=== PATIENT | male | born 1940 | race Caucasian/White ===

== ENCOUNTER → 2018-02-07 | Outpatient (CLI) | payer MEDICARE, BC ==
--- NOTE | 2018-02-07 08:00 | US ---
EXAMINATION TYPE: US venous doppler duplex LE BI DATE OF EXAM: 02/07/2018 7:31 AM COMPARISON: NONE CLINICAL HISTORY: R60.9 bilateral Edema. Right foot and ankle swelling x 1 year; prior right leg frac ture SIDE PERFORMED: Bilateral TECHNIQUE: The lower extremity deep venous system is examined utilizing real time linear array sonog rach with graded compression, doppler sonography and color-flow sonography. VESSELS IMAGED: Common Femoral Vein Deep Femoral Vein Greater Saphenous Vein * Femoral Vein Popliteal Vein Small Saphenous Vein * Proximal Calf Veins (* superficial vessels) Right Leg: Negative for DVT Left Leg: Negative for DVT Grayscale, color doppler, spectral doppler imaging performed of the deep veins of the bilateral lowe r extremities. There is normal flow, compressibility, vascular waveforms. IMPRESSION: No ultrasound evidence for acute DVT in either lower extremity.
== END ==
LOC: RADUSWWP 07:00
PROVIDERS: ATTEND Podiatrist Foot & Ankle Surgery
DX: R60.9 Edema, unspecified (principal)
CPT/HCPCS: 93970

== ENCOUNTER 2018-06-16 06:57 | Day surgery (SDC) | payer MEDICARE, BC ==
[~2018-06-16 06:57] MED LIST: LACTATED RINGERS 1,000 ML IV SCH; LIDOCAINE 1% 20 ML VIAL (10MG/ML) FOR IV START INTRADERMA PRN
[2018-06-16] MEDS ORDERED: LACTATED RINGERS 1,000 ML IV ONE (07:04)
[2018-06-16 07:16] VITALS: RESP 16; TEMP 97.7
[2018-06-16] MEDS ORDERED: LIDOCAINE 1% INJ 10MG/ML (20 ML MDV) ONE (07:40)
[2018-06-16] MEDS ORDERED: PROPOFOL 10 MG/ML 20 ML VIAL IV ONE (07:40)
--- NOTE | 2018-06-16 07:54 | P.GSHP ---
History of Present Illness H&P Date: 06/16/18 Chief Complaint: Screening colonoscopy This a 77-year-old male who presents today for screening colonoscopy. Patient denies a significant GI complaints. Past Medical History Past Medical History: Atrial Fibrillation, Chest Pain / Angina, Hypertension, Osteoarthritis (OA), Prostate Disorder, Sleep Apnea/CPAP/BIPAP Additional Past Medical History / Comment(s): USES CPAP.Arthritis bilateral hands. Occasional RLS. BPH.. DIVERTICULI. History of Any Multi-Drug Resistant Organisms: None Reported Past Surgical History: Appendectomy, Heart Catheterization, Hernia Repair, Orthopedic Surgery Additional Past Surgical History / Comment(s): BILATERAL CATARACTS. Bilateral inguinal hernia repairs. Bilateral knee arthroscopies. EGD/colonoscopy/benign polypectomy. R eye tear duct. R shoulder arthroscopy. Vasectomy. Past Anesthesia/Blood Transfusion Reactions: No Reported Reaction Past Psychological History: No Psychological Hx Reported Additional Psychological History / Comment(s): Pt resides with his spouse. He is independent. 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 Smoking Status: Never smoker Past Alcohol Use History: Occasional Additional Past Alcohol Use History / Comment(s): pt drinks about 2 drinks daily in the evening. Past Drug Use History: None Reported - Past Family History Mother Family Medical History: Diabetes Mellitus Additional Family Medical History / Comment(s): Mother lived to be in her 80's. Father Brother(s) Family Medical History: Cancer Additional Family Medical History / Comment(s): Father had lung cancer. He was a smoker. Medications and Allergies Home Medications Medication Instructions Recorded Confirmed Type Apixaban [Eliquis] 5 mg PO BID #60 tab 04/24/17 06/16/18 Rx Metoprolol Tartrate [Lopressor] 50 mg PO BID #60 tab 04/24/17 06/16/18 Rx Allergies Allergy/AdvReac Type Severity Reaction Status Date / Time Penicillins Allergy Rash/Hives Verified 06/16/18 07:11 Surgical - Exam Vital Signs Temp Pulse Resp BP Pulse Ox 97.7 F 67 16 157/91 96 06/16/18 07:13 06/16/18 07:13 06/16/18 07:13 06/16/18 07:13 06/16/18 07:13 - General well developed, no distress - Eyes PERRL - ENT normal pinna - Neck no masses - Respiratory normal expansion - Cardiovascular Rhythm: regular - Abdomen Abdomen: soft, non tender Assessment and Plan Assessment: We will perform screening colonoscopy
--- NOTE | 2018-06-16 08:14 | P.OP ---
Date of Procedure: 06/16/18 Preoperative Diagnosis: Screening colonoscopy Postoperative Diagnosis: Diverticulosis Procedure(s) Performed: Colonoscopy Anesthesia: MAC Surgeon: Jesus Vital Pathology: none sent Condition: stable Disposition: PACU Description of Procedure: The patient's placed on the endoscopy table in the lateral position. He received IV sedation. Digital rectal exam was performed. The flexible colonoscope was then placed patient anus and passed throughout the entire colon. The ileocecal valve visualized. Cecum, ascending and transverse colon appeared normal. In the descending and sigmoid: there is moderate diverticular changes. The scope was then brought back the rectum and this appeared normal. Scope was withdrawn for patient.
[2018-06-16 08:30] VITALS: BP 140/75; PULSE 66
== END 2018-06-16 09:03 | disposition home or self-care (01) ==
LOC: ORWHC2ENDO 06:57
PROVIDERS: ATTEND Surgery
DX: Z12.11 Encounter for screening for malignant neoplasm of colon (principal); K57.30 Diverticulosis of large intestine without perforation or abscess without bleeding; G47.33 Obstructive sleep apnea (adult) (pediatric); I48.91 Unspecified atrial fibrillation; M19.90 Unspecified osteoarthritis, unspecified site; N40.0 Benign prostatic hyperplasia without lower urinary tract symptoms; I10 Essential (primary) hypertension; G25.81 Restless legs syndrome; Z79.01 Long term (current) use of anticoagulants; Z79.899 Other long term (current) drug therapy; Z88.0 Allergy status to penicillin; Z99.89 Dependence on other enabling machines and devices
CPT/HCPCS: J2001; J2704; G0121; 45378

== ENCOUNTER → 2018-07-18 | Outpatient (CLI) | payer MEDICARE, BC ==
--- NOTE | 2018-07-18 16:44 | US ---
EXAMINATION TYPE: US carotid duplex BILAT DATE OF EXAM: 07/18/2018 COMPARISON: NONE CLINICAL HISTORY: R42 Dizziness and giddiness. Pt states dizziness EXAM MEASUREMENTS: RIGHT: Peak Systolic Velocity (PSV) cm/sec ----- Right CCA: 105 ----- Right ICA: 93.0 ----- Right ECA: 87.0 ICA/CCA ratio: 0.9 RIGHT: End Diastole cm/sec ----- Right CCA: 17.0 ----- Right ICA: 25.8 ----- Right ECA: 5.4 LEFT: Peak Systolic Velocity (PSV) cm/sec ----- Left CCA: 81.7 ----- Left ICA: 85.5 ----- Left ECA: 85.2 ICA/CCA ratio: 1.04 LEFT: End Diastole cm/sec ----- Left CCA: 16.0 ----- Left ICA: 25.3 ----- Left ECA: 7.2 VERTEBRALS (direction of flow): Right Vertebral: Antegrade Left Vertebral: Antegrade Rhythm: Arrhythmia No significant stenosis seen, arrhythmia IMPRESSION: 1. No significant flow-limiting stenosis. Criteria for Assigning % of Stenosis / Diameter reduction (Estimation based on the indirect measurements of the internal carotid artery velocities (ICA PSV). 1. Normal (no stenosis)=ICA PSV < 125 cm/s: ratio < 2.0: ICA EDV<40 cm/s. 2. Less than 50% stenosis=ICA PSV < 125 cm/s: ratio < 2.0: ICA EDV<40 cm/s. 3. 50 to 69% stenosis=ICA PSV of 125 to 230 cm/s: ration 2.0 ? 4.0: ICA EDV 40-100 cm/s. 4. Greater than 70% stenosis to near occlusion= ICA PSV > 230 cm/s: ratio > 4.0: ICA EDV > 100 cm/s. 5. Near occlusion= ICA PSV velocities may be low or undetectable: variable ratio and ICA EDV. 6. Total occlusion=unable to detect flow.
== END ==
LOC: RADUSWWP 15:35
PROVIDERS: ATTEND Family Medicine
DX: R42 Dizziness and giddiness (principal)
CPT/HCPCS: 93880

== ENCOUNTER → 2020-03-21 | Outpatient (CLI) | payer MEDICARE, BC ==
--- NOTE | 2020-03-21 16:06 | CT ---
EXAMINATION TYPE: CT brain wo con DATE OF EXAM: 03/21/2020 HISTORY: PLASCENCIA CT DLP: 999.8 mGycm. Automated Exposure Control for Dose Reduction was Utilized. TECHNIQUE: CT scan of the head is performed without contrast. COMPARISON: None FINDINGS: There is no acute intracranial hemorrhage, midline shift, or mass effect identified. There is diffuse volume. Patchy periventricular white matter hypodensities likely sequela of chronic microvascular is chemic change. The ventricles, sulci, and cisterns are prominent concordant with volume loss. No extra-axial fluid collection. Bones and extracranial soft tissues are intact. The globes are gross ly symmetric with cataract postsurgical changes. Visualized sinuses and mastoid air cells are clear. IMPRESSION: No acute intracranial hemorrhage, midline shift, or mass effect.
== END | disposition home or self-care (01) ==
LOC: RADCTMAIN 13:43
PROVIDERS: ATTEND Family Medicine
DX: R51.9 Headache, unspecified (principal)
CPT/HCPCS: 70450

== ENCOUNTER 2020-09-15 18:25 | Emergency (ER) | payer MEDICARE, BC ==
[2020-09-15] MEDS ORDERED: ACETAMINOPHEN TAB 500 MG TAB PO STA (21:02)
[2020-09-15] MEDS ORDERED: SODIUM CHLORIDE 0.9% 500 ML 500 ML IV STA (21:03)
[2020-09-15] MEDS ORDERED: KETOROLAC 15 MG/ML 1 ML VIAL IVP STA (21:03)
--- NOTE | 2020-09-15 21:35 | XR ---
EXAMINATION: XR chest 1V portable DATE AND TIME: 09/15/2020 9:21 PM CLINICAL INDICATION: [facility]; Suspected COVID-19 pneumonia TECHNIQUE: Departmental protocol COMPARISON: 04/22/2017 chest radiograph FINDINGS: The lungs are clear. The pleural spaces are negative. The cardiac silhouette is moderately enlarged, perhaps more so than the prior study but there are dif ferences in the technique between the 2 studies. The remainder of the mediastinal silhouette is unremarkable. The skeletal structures and soft tissues are negative for acute findings. IMPRESSION: 1. No definite acute process. 2. Enlarged cardiac silhouette.
[2020-09-15 21:55] LABS: Basophils % (A) 1 %; Eosinophils % (A) 0 %; HCT 43.7 % (39.0-53.0); HGB 14.1 gm/dL (13.0-17.5); Lymphocytes # (A) 0.7 k/uL (1.0-4.8); Lymphocytes % (A) 14 %; MCH 33.2 pg (25.0-35.0); MCHC 32.4 g/dL (31.0-37.0); MCV 102.5 fL (80.0-100.0); Macrocytosis Slight; Mean Platelet Volume 7.4; Monocytes # (A) 0.3 k/uL (0-1.0); Monocytes % (A) 5 %; Neutrophils # (A) 4.1 k/uL (1.3-7.7); Neutrophils % (A) 79 %; Platelet Count 176 k/uL (150-450); RBC 4.26 m/uL (4.30-5.90); WBC 5.2 k/uL (3.8-10.6)
[2020-09-15 22:03] VITALS: TEMP 99
[2020-09-15 22:06] LABS: ALT 47 U/L (4-49); AST 57 U/L (17-59); African American GFR (CKD) >90 (>60 ml/min/1.73 sqM); Albumin 4.3 g/dL (3.5-5.0); Alkaline Phosphatase 183 U/L (38-126); Anion Gap 9 mmol/L; Blood Urea Nitrogen 16 mg/dL (9-20); C Reactive Protein 37.8 mg/L (<10.0); Calcium 9.1 mg/dL (8.4-10.2); Carbon Dioxide 26 mmol/L (22-30); Chloride 101 mmol/L (98-107); Glucose 109 mg/dL (74-99); Magnesium 1.9 mg/dL (1.6-2.3); Non-African American GFR(CKD) 85 (>60 ml/min/1.73 sqM); Potassium 4.5 mmol/L (3.5-5.1); Sodium 136 mmol/L (137-145); Total Bilirubin 0.8 mg/dL (0.2-1.3); Total Protein 7.5 g/dL (6.3-8.2)
[2020-09-15 22:11] LABS: Partial Thromboplastin Time 26.1 sec (22.0-30.0); Prothrombin Time 10.5 sec (9.0-12.0)
[2020-09-15] MEDS ORDERED: BAMLANIVIMAB (EUA) 700 MG, ETESEVIMAB (EUA) 1,400 MG in SODIUM CHLORIDE 0.9% 50 ML IVPB ONE (23:00)
--- NOTE | 2020-09-15 23:36 | ED ---
General Adult HPI - General Chief complaint: Upper Respiratory Infection Stated complaint: Covid+, RONNIE Time Seen by Provider: 09/15/20 20:36 Source: patient Mode of arrival: ambulatory Limitations: no limitations - History of Present Illness Initial comments: 79 year old male with a past medical history atrial fibrillation, hypertension presents to the emergency room for a chief complaint of not feeling well. Patient reports that he tested positive for coronavirus last Saturday. Than having symptoms for 8 days now. States he has had a slight cough, body aches, and a headache. Patient states he is here today for his headache. Patient has not taken anything for pain. Patient denies shortness of breath. Patient denies this being the worst headache of his life.Patient has no other complaints at this time including shortness of breath, chest pain, abdominal pain, nausea or vomiting, headache, or visual changes. - Related Data Previous Rx's Medication Instructions Recorded Apixaban [Eliquis] 5 mg PO BID #60 tab 04/24/17 Metoprolol Tartrate [Lopressor] 50 mg PO BID #60 tab 04/24/17 Allergies Allergy/AdvReac Type Severity Reaction Status Date / Time Penicillins Allergy Rash/Hives Verified 09/15/20 18:37 Review of Systems ROS Statement: Those systems with pertinent positive or pertinent negative responses have been documented in the HPI. ROS Other: All systems not noted in ROS Statement are negative. Past Medical History Past Medical History: Atrial Fibrillation, Chest Pain / Angina, Hypertension, Osteoarthritis (OA), Prostate Disorder, Sleep Apnea/CPAP/BIPAP Additional Past Medical History / Comment(s): USES CPAP.Arthritis bilateral hands. Occasional RLS. BPH.. DIVERTICULI. History of Any Multi-Drug Resistant Organisms: None Reported Past Surgical History: Appendectomy, Heart Catheterization, Hernia Repair, Orthopedic Surgery Additional Past Surgical History / Comment(s): BILATERAL CATARACTS. Bilateral inguinal hernia repairs. Bilateral knee arthroscopies. EGD/colonoscopy/benign polypectomy. R eye tear duct. R shoulder arthroscopy. Vasectomy. Past Anesthesia/Blood Transfusion Reactions: No Reported Reaction Past Psychological History: No Psychological Hx Reported Smoking Status: Former smoker Past Alcohol Use History: Occasional Past Drug Use History: None Reported - Past Family History Mother Family Medical History: Diabetes Mellitus Additional Family Medical History / Comment(s): Mother lived to be in her 80's. Father Brother(s) Family Medical History: Cancer Additional Family Medical History / Comment(s): Father had lung cancer. He was a smoker. General Exam Limitations: no limitations General appearance: alert, in no apparent distress Head exam: Present: atraumatic, normocephalic, normal inspection Eye exam: Present: normal appearance, PERRL, EOMI. Absent: scleral icterus, conjunctival injection, periorbital swelling ENT exam: Present: normal exam, mucous membranes moist Neck exam: Present: normal inspection, full ROM. Absent: tenderness, meningismus, lymphadenopathy Respiratory exam: Present: normal lung sounds bilaterally. Absent: respiratory distress, wheezes, rales, rhonchi, stridor Cardiovascular Exam: Present: regular rate, normal rhythm, normal heart sounds. Absent: systolic murmur, diastolic murmur, rubs, gallop, clicks GI/Abdominal exam: Present: soft, normal bowel sounds. Absent: distended, tenderness, guarding, rebound, rigid Neurological exam: Present: alert, oriented X3, normal gait, other (GCS 15) Course Vital Signs 09/15/20 09/15/20 18:34 22:02 Temperature 98.5 F 99 F Pulse Rate 75 89 Respiratory 18 Rate Blood Pressure 139/81 O2 Sat by Pulse 98 98 Oximetry Medical Decision Making - Medical Decision Making Vitals are stable. Patient is well-appearing. CBC and CMP unremarkable. CRP elevated likely secondary to Cee virus. Chest x-ray shows no definite acute process. Enlarged cardiac silhouette is noted. Patient denying any chest pain. Patient was given fluids and pain medication and did have significant improvement in symptoms. He states his headache is gone. She does qualify for antibody infusion. I did discuss the risks of this including that it is not fully studied and there is risk of ALLERGIC reaction. Patient is agreeable to this. Patient will be discharged home after antibodies. - Lab Data Result diagrams: 09/15/20 21:36 09/15/20 21:36 Lab Results 09/15/20 09/15/20 09/15/20 Range/Units 21:36 21:36 21:36 WBC 5.2 (3.8-10.6) k/uL RBC 4.26 L (4.30-5.90) m/uL Hgb 14.1 (13.0-17.5) gm/dL Hct 43.7 (39.0-53.0) % MCV 102.5 H (80.0-100.0) fL MCH 33.2 (25.0-35.0) pg MCHC 32.4 (31.0-37.0) g/dL RDW 14.0 (11.5-15.5) % Plt Count 176 (150-450) k/uL MPV 7.4 Neutrophils % 79 % Lymphocytes % 14 % Monocytes % 5 % Eosinophils % 0 % Basophils % 1 % Neutrophils # 4.1 (1.3-7.7) k/uL Lymphocytes # 0.7 L (1.0-4.8) k/uL Monocytes # 0.3 (0-1.0) k/uL Eosinophils # 0.0 (0-0.7) k/uL Basophils # 0.0 (0-0.2) k/uL Macrocytosis Slight PT 10.5 (9.0-12.0) sec INR 1.0 (<1.2) APTT 26.1 (22.0-30.0) sec Sodium 136 L (137-145) mmol/L Potassium 4.5 (3.5-5.1) mmol/L Chloride 101 (98-107) mmol/L Carbon Dioxide 26 (22-30) mmol/L Anion Gap 9 mmol/L BUN 16 (9-20) mg/dL Creatinine 0.79 (0.66-1.25) mg/dL Est GFR (CKD-EPI)AfAm >90 (>60 ml/min/1.73 sqM) Est GFR (CKD-EPI)NonAf 85 (>60 ml/min/1.73 sqM) Glucose 109 H (74-99) mg/dL Calcium 9.1 (8.4-10.2) mg/dL Magnesium 1.9 (1.6-2.3) mg/dL Total Bilirubin 0.8 (0.2-1.3) mg/dL AST 57 (17-59) U/L ALT 47 (4-49) U/L Alkaline Phosphatase 183 H (38-126) U/L C-Reactive Protein 37.8 H (<10.0) mg/L Total Protein 7.5 (6.3-8.2) g/dL Albumin 4.3 (3.5-5.0) g/dL Coronavirus (PCR) (Not Detectd) 09/15/20 Range/Units 21:36 WBC (3.8-10.6) k/uL RBC (4.30-5.90) m/uL Hgb (13.0-17.5) gm/dL Hct (39.0-53.0) % MCV (80.0-100.0) fL MCH (25.0-35.0) pg MCHC (31.0-37.0) g/dL RDW (11.5-15.5) % Plt Count (150-450) k/uL MPV Neutrophils % % Lymphocytes % % Monocytes % % Eosinophils % % Basophils % % Neutrophils # (1.3-7.7) k/uL Lymphocytes # (1.0-4.8) k/uL Monocytes # (0-1.0) k/uL Eosinophils # (0-0.7) k/uL Basophils # (0-0.2) k/uL Macrocytosis PT (9.0-12.0) sec INR (<1.2) APTT (22.0-30.0) sec Sodium (137-145) mmol/L Potassium (3.5-5.1) mmol/L Chloride (98-107) mmol/L Carbon Dioxide (22-30) mmol/L Anion Gap mmol/L BUN (9-20) mg/dL Creatinine (0.66-1.25) mg/dL Est GFR (CKD-EPI)AfAm (>60 ml/min/1.73 sqM) Est GFR (CKD-EPI)NonAf (>60 ml/min/1.73 sqM) Glucose (74-99) mg/dL Calcium (8.4-10.2) mg/dL Magnesium (1.6-2.3) mg/dL Total Bilirubin (0.2-1.3) mg/dL AST (17-59) U/L ALT (4-49) U/L Alkaline Phosphatase (38-126) U/L C-Reactive Protein (<10.0) mg/L Total Protein (6.3-8.2) g/dL Albumin (3.5-5.0) g/dL Coronavirus (PCR) Detected A (Not Detectd) Disposition Clinical Impression: COVID-19 Disposition: HOME SELF-CARE Condition: Good Instructions (If sedation given, give patient instructions): Coronavirus Disease 2019 (COVID-19) Additional Instructions: Please continue to quarantine for at least 10-14 days and until symptoms improve. Please follow up with primary care and return here for any worsening symptoms. Is patient prescribed a controlled substance at d/c from ED?: No Referrals: Arsenio Nunes MD [Primary Care Provider] - 1-2 days Time of Disposition: 23:35
[2020-09-16 00:43] VITALS: BP 123/89; PULSE 80; RESP 16
== END 2020-09-16 00:42 | disposition home or self-care (01) ==
LOC: EC 18:25
DX: U07.1 COVID-19 (principal); I48.91 Unspecified atrial fibrillation; I10 Essential (primary) hypertension; G47.30 Sleep apnea, unspecified; Z88.0 Allergy status to penicillin; Z87.891 Personal history of nicotine dependence; Z99.89 Dependence on other enabling machines and devices
CPT/HCPCS: 36415; 80053; 83735; 85025; 85610; 85730; 86140; 84145; 87635; 71045; 99283; 96365; 96375; 96361 ×2; J1885; Q0245

== ENCOUNTER 2021-01-04 12:32 | Observation (INO) | payer MEDICARE, BC ==
[2021-01-04] MEDS ORDERED: NITROGLYCERIN OINT 1 INCH/GM PACKET TOPICAL STA (14:31)
[2021-01-04] MEDS ORDERED: ASPIRIN 81 MG PO STA (14:31)
--- NOTE | 2021-01-04 14:37 | ED ---
General Adult HPI - General Chief complaint: Chest Pain Stated complaint: Chest Time Seen by Provider: 01/04/21 13:45 Source: patient, RN notes reviewed Mode of arrival: wheelchair Limitations: no limitations - History of Present Illness Initial comments: Patient is a pleasant 80-year-old male presenting to the emergency department chest discomfort. Onset of symptoms was yesterday morning. Patient did receive vaccination for Covid the day before. Patient states discomfort is improved at this time. Discomfort was difficult to describe. There may been some mild associated dyspnea. Patient believes symptoms improved with his anti-inflammatories. No leg pain or leg swelling. No history of similar symptoms previously. - Related Data Previous Rx's Medication Instructions Recorded Apixaban [Eliquis] 5 mg PO BID #60 tab 04/24/17 Metoprolol Tartrate [Lopressor] 50 mg PO BID #60 tab 04/24/17 Allergies Allergy/AdvReac Type Severity Reaction Status Date / Time Penicillins Allergy Rash/Hives Verified 01/04/21 12:42 Review of Systems ROS Statement: Those systems with pertinent positive or pertinent negative responses have been documented in the HPI. ROS Other: All systems not noted in ROS Statement are negative. Constitutional: Denies: fever Eyes: Denies: eye pain ENT: Denies: ear pain Respiratory: Denies: cough Cardiovascular: Reports: chest pain Endocrine: Denies: fatigue Gastrointestinal: Denies: abdominal pain, vomiting Genitourinary: Denies: dysuria Musculoskeletal: Denies: back pain Skin: Denies: rash Neurological: Denies: weakness Past Medical History Past Medical History: Atrial Fibrillation, Chest Pain / Angina, Hypertension, Osteoarthritis (OA), Prostate Disorder, Sleep Apnea/CPAP/BIPAP Additional Past Medical History / Comment(s): USES CPAP.Arthritis bilateral hands. Occasional RLS. BPH.. DIVERTICULI. History of Any Multi-Drug Resistant Organisms: None Reported Past Surgical History: Appendectomy, Heart Catheterization, Hernia Repair, Orthopedic Surgery Additional Past Surgical History / Comment(s): BILATERAL CATARACTS. Bilateral inguinal hernia repairs. Bilateral knee arthroscopies. EGD/colonoscopy/benign polypectomy. R eye tear duct. R shoulder arthroscopy. Vasectomy. Past Anesthesia/Blood Transfusion Reactions: No Reported Reaction Past Psychological History: No Psychological Hx Reported Smoking Status: Former smoker Past Alcohol Use History: Occasional Past Drug Use History: None Reported - Past Family History Mother Family Medical History: Diabetes Mellitus Additional Family Medical History / Comment(s): Mother lived to be in her 80's. Father Brother(s) Family Medical History: Cancer Additional Family Medical History / Comment(s): Father had lung cancer. He was a smoker. General Exam Limitations: no limitations General appearance: alert, in no apparent distress Head exam: Present: normocephalic Eye exam: Present: normal appearance ENT exam: Present: normal oropharynx Neck exam: Present: normal inspection Respiratory exam: Present: normal lung sounds bilaterally. Absent: chest wall tenderness Cardiovascular Exam: Present: regular rate, normal rhythm Expanded Peripheral pulses: 2+: Radial (R), Radial (L), Posterior Tibialis (R), Posterior Tibialis (L), Dorsalis Pedis (R), Dorsalis Pedis (L) GI/Abdominal exam: Present: soft. Absent: tenderness Extremities exam: Present: normal inspection. 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 fib with rate of 80.. S1 06. QT 378. QTC 435. Normal axis. Incomplete right bundle-branch block. No acute ST change. Septal Q waves. Medical Decision Making - Medical Decision Making Patient reevaluated and resting comfortably in bed. Dr. Nunes has been paged for admission of this patient. Patient will be covered with antibiotics for qu estionable early pneumonia. - Lab Data Result diagrams: 01/04/21 14:31 01/04/21 14:31 Lab Results 01/04/21 01/04/21 01/04/21 Range/Units 14:31 14:31 14:31 WBC 3.8 (3.8-10.6) k/uL RBC 3.42 L (4.30-5.90) m/uL Hgb 12.1 L (13.0-17.5) gm/dL Hct 36.0 L (39.0-53.0) % MCV 105.4 H (80.0-100.0) fL MCH 35.3 H (25.0-35.0) pg MCHC 33.5 (31.0-37.0) g/dL RDW 14.9 (11.5-15.5) % Plt Count 166 (150-450) k/uL MPV 7.5 Neutrophils % 82 % Lymphocytes % 8 % Monocytes % 6 % Eosinophils % 2 % Basophils % 0 % Neutrophils # 3.1 (1.3-7.7) k/uL Lymphocytes # 0.3 L (1.0-4.8) k/uL Monocytes # 0.2 (0-1.0) k/uL Eosinophils # 0.1 (0-0.7) k/uL Basophils # 0.0 (0-0.2) k/uL Macrocytosis Moderate PT 11.2 (9.0-12.0) sec INR 1.1 (<1.2) APTT 26.8 (22.0-30.0) sec D-Dimer 0.42 (<0.60) mg/L FEU Sodium 134 L (137-145) mmol/L Potassium 4.5 (3.5-5.1) mmol/L Chloride 102 (98-107) mmol/L Carbon Dioxide 27 (22-30) mmol/L Anion Gap 5 mmol/L BUN 14 (9-20) mg/dL Creatinine 0.87 (0.66-1.25) mg/dL Est GFR (CKD-EPI)AfAm >90 (>60 ml/min/1.73 sqM) Est GFR (CKD-EPI)NonAf 81 (>60 ml/min/1.73 sqM) Glucose 104 H (74-99) mg/dL Calcium 9.2 (8.4-10.2) mg/dL Magnesium 2.1 (1.6-2.3) mg/dL Total Bilirubin 0.7 (0.2-1.3) mg/dL AST 79 H (17-59) U/L ALT 74 H (4-49) U/L Alkaline Phosphatase 165 H (38-126) U/L Troponin I (0.000-0.034) ng/mL Total Protein 6.6 (6.3-8.2) g/dL Albumin 3.9 (3.5-5.0) g/dL Amylase 44 (30-110) U/L Lipase 46 (23-300) U/L 01/04/21 Range/Units 14:31 WBC (3.8-10.6) k/uL RBC (4.30-5.90) m/uL Hgb (13.0-17.5) gm/dL Hct (39.0-53.0) % MCV (80.0-100.0) fL MCH (25.0-35.0) pg MCHC (31.0-37.0) g/dL RDW (11.5-15.5) % Plt Count (150-450) k/uL MPV Neutrophils % % Lymphocytes % % Monocytes % % Eosinophils % % Basophils % % Neutrophils # (1.3-7.7) k/uL Lymphocytes # (1.0-4.8) k/uL Monocytes # (0-1.0) k/uL Eosinophils # (0-0.7) k/uL Basophils # (0-0.2) k/uL Macrocytosis PT (9.0-12.0) sec INR (<1.2) APTT (22.0-30.0) sec D-Dimer (<0.60) mg/L FEU Sodium (137-145) mmol/L Potassium (3.5-5.1) mmol/L Chloride (98-107) mmol/L Carbon Dioxide (22-30) mmol/L Anion Gap mmol/L BUN (9-20) mg/dL Creatinine (0.66-1.25) mg/dL Est GFR (CKD-EPI)AfAm (>60 ml/min/1.73 sqM) Est GFR (CKD-EPI)NonAf (>60 ml/min/1.73 sqM) Glucose (74-99) mg/dL Calcium (8.4-10.2) mg/dL Magnesium (1.6-2.3) mg/dL Total Bilirubin (0.2-1.3) mg/dL AST (17-59) U/L ALT (4-49) U/L Alkaline Phosphatase (38-126) U/L Troponin I <0.012 (0.000-0.034) ng/mL Total Protein (6.3-8.2) g/dL Albumin (3.5-5.0) g/dL Amylase (30-110) U/L Lipase (23-300) U/L - Radiology Data Radiology results: image reviewed (Chest x-ray shows cardiomegaly and COPD. Lateral density right lower lobe, possibly developing infiltrate.) Disposition Clinical Impression: Chest pain Disposition: ADMITTED IP TO THIS HOSP Is patient prescribed a controlled substance at d/c from ED?: No Referrals: Arsenio Nunes MD [Primary Care Provider] - 1-2 days Decision Time: 15:16
[2021-01-04 14:42] LABS: Basophils % (A) 0 %; Eosinophils # (A) 0.1 k/uL (0-0.7); Eosinophils % (A) 2 %; HGB 12.1 gm/dL (13.0-17.5); Lymphocytes # (A) 0.3 k/uL (1.0-4.8); Lymphocytes % (A) 8 %; MCH 35.3 pg (25.0-35.0); MCHC 33.5 g/dL (31.0-37.0); MCV 105.4 fL (80.0-100.0); Macrocytosis Moderate; Mean Platelet Volume 7.5; Monocytes # (A) 0.2 k/uL (0-1.0); Monocytes % (A) 6 %; Neutrophils # (A) 3.1 k/uL (1.3-7.7); Neutrophils % (A) 82 %; Platelet Count 166 k/uL (150-450); RBC 3.42 m/uL (4.30-5.90); RDW 14.9 % (11.5-15.5); WBC 3.8 k/uL (3.8-10.6)
--- NOTE | 2021-01-04 14:49 | XR ---
EXAMINATION TYPE: XR chest 2V DATE OF EXAM: 01/04/2021 COMPARISON: 09/15/2020 TECHNIQUE: PA and lateral views submitted. HISTORY: Redness of breath FINDINGS: The lungs are clear and there is no pneumothorax, pleural effusion, or focal pneumonia pleural-based thickening is increased along the right lateral chest wall. Heart is enlarged and underlying COPD. P rominence of the right paratracheal stripe noted there is apical pleural thickening. Arthropathy of t he shoulders with no overt failure or focal pneumonia hypertrophic and degenerative change of the spi ne. IMPRESSION: 1. Cardiomegaly and COPD. Is increasing density along the lateral margin of the right lower lobe coul d represent developing infiltrate follow up CT of the chest recommended.
[2021-01-04 14:53] LABS: ALT 74 U/L (4-49); AST 79 U/L (17-59); African American GFR (CKD) >90 (>60 ml/min/1.73 sqM); Albumin 3.9 g/dL (3.5-5.0); Alkaline Phosphatase 165 U/L (38-126); Amylase 44 U/L (30-110); Anion Gap 5 mmol/L; Blood Urea Nitrogen 14 mg/dL (9-20); Calcium 9.2 mg/dL (8.4-10.2); Carbon Dioxide 27 mmol/L (22-30); Chloride 102 mmol/L (98-107); Glucose 104 mg/dL (74-99); Lipase 46 U/L (23-300); Magnesium 2.1 mg/dL (1.6-2.3); Non-African American GFR(CKD) 81 (>60 ml/min/1.73 sqM); Potassium 4.5 mmol/L (3.5-5.1); Sodium 134 mmol/L (137-145); Total Bilirubin 0.7 mg/dL (0.2-1.3); Total Protein 6.6 g/dL (6.3-8.2)
[2021-01-04 14:56] LABS: INR 1.1 (<1.2); Partial Thromboplastin Time 26.8 sec (22.0-30.0); Prothrombin Time 11.2 sec (9.0-12.0)
[2021-01-04] MEDS ORDERED: PNEUMONIA PROTOCOL UTILIZED 1 EACH MISC PO PRN (15:16)
[2021-01-04] MEDS ORDERED: NITROGLYCERIN SL TABS 0.4 MG TAB SUBLINGUAL PRN (15:16)
[2021-01-04] MEDS ORDERED: AZITHROMYCIN 500 MG in SODIUM CHLORIDE 0.9% 250 ML IVPB STA (15:16)
[2021-01-04] MEDS: SODIUM CHLORIDE 0.9% 1,000 ML IV SCH (16:02)
[2021-01-04] MEDS: APIXABAN 5 MG TAB PO SCH (21:24)
[2021-01-05] MEDS: METOPROLOL TARTRATE 25 MG TAB PO SCH ×2 (01:29→22:20)
[2021-01-05] MEDS: SODIUM CHLORIDE 0.9% 1,000 ML IV SCH (02:03)
--- NOTE | 2021-01-05 08:18 | P.HPIM ---
History of Present Illness H&P Date: 01/05/21 Chief Complaint: Shortness of breath or chest pain. This is a history and physical on an 80-year-old white male who recently received his second code vaccination and about 3-4 days after the second dose, had significant substernal chest pressure and shortness of breath. Evaluation in the emergency room showed significant infiltrate and with his symptomatology he was admitted for observation to rule out myocardial infarction. He has had history of chronic virus infection in the past. He feels much better this morning. 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 Review of Systems Constitutional: Denies chills, Denies fever Eyes: denies blurred vision, denies pain Ears, nose, mouth and throat: Denies headache, Denies sore throat Cardiovascular: Reports chest pain, Reports shortness of breath, Denies edema Respiratory: Denies cough Gastrointestinal: Denies abdominal pain, Denies diarrhea, Denies nausea, Denies vomiting Musculoskeletal: Denies myalgias Integumentary: Denies pruritus, Denies rash Neurological: Denies numbness, Denies weakness Endocrine: Denies fatigue, Denies weight change Past Medical History Past Medical History: Atrial Fibrillation, Chest Pain / Angina, Hypertension, Osteoarthritis (OA), Prostate Disorder, Sleep Apnea/CPAP/BIPAP Additional Past Medical History / Comment(s): Pt states he is not using a CPAP at home at this time.Arthritis bilateral hands. Occasional RLS. BPH.. DIVERTICULI. History of Any Multi-Drug Resistant Organisms: None Reported Past Surgical History: Appendectomy, Cardiac Ablation, Heart Catheterization, Hernia Repair, Orthopedic Surgery Additional Past Surgical History / Comment(s): BILATERAL CATARACTS. Bilateral inguinal hernia repairs. Bilateral knee arthroscopies. EGD/colonoscopy/benign polypectomy. R eye tear duct. R shoulder arthroscopy. Vasectomy. Pt also had [address] Haynes where he states he stopped his heart to get rid of the afib but they were both unsuccessful. Past Anesthesia/Blood Transfusion Reactions: No Reported Reaction Past Psychological History: No Psychological Hx Reported Additional Psychological History / Comment(s): Pt resides with his spouse. He is independent. 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 Smoking Status: Never smoker Past Alcohol Use History: Occasional Additional Past Alcohol Use History / Comment(s): pt states he drinks about 1-2 beers every other day. Past Drug Use History: None Reported - Past Family History Mother Family Medical History: Diabetes Mellitus Additional Family Medical History / Comment(s): Mother lived to be in her 80's. Father Brother(s) Family Medical History: Cancer Additional Family Medical History / Comment(s): Father had lung cancer. He was a smoker. Medications and Allergies Home Medications Medication Instructions Recorded Confirmed Type Apixaban [Eliquis] 5 mg PO BID #60 tab 04/24/17 01/04/21 Rx Metoprolol Tartrate [Lopressor] 25 mg PO HS 01/04/21 01/04/21 History Metoprolol Tartrate [Lopressor] 50 mg PO DAILY 01/04/21 01/04/21 History Allergies Allergy/AdvReac Type Severity Reaction Status Date / Time Penicillins Allergy Rash/Hives Verified 01/04/21 15:36 Physical Exam Vitals: Vital Signs Temp Pulse Pulse Pulse Resp BP BP 01/05/21 07:00 98.0 F 58 L 18 129/78 01/05/21 02:00 95 16 01/05/21 01:27 98.3 F 95 16 136/77 01/04/21 19:42 98.1 F 72 20 115/72 01/04/21 18:24 98.7 F 81 18 124/76 01/04/21 15:05 98.4 F 73 16 132/70 01/04/21 14:30 78 01/04/21 12:42 100.0 F H 76 20 134/72 Pulse Ox 01/05/21 07:00 94 L 01/05/21 02:00 01/05/21 01:27 95 01/04/21 19:42 96 01/04/21 18:24 97 01/04/21 15:05 97 01/04/21 14:30 01/04/21 12:42 96 Intake and Output 01/04/21 01/05/21 01/05/21 22:59 06:59 14:59 Intake Total 300 0 Balance 300 0 Intake: Oral 300 0 Other: Voiding Method Toilet # Voids 1 2 Weight 90.265 kg - Constitutional General appearance: no acute distress - EENT Eyes: EOMI - Neck Neck: no lymphadenopathy - Respiratory Respiratory: bilateral: diminished - Cardiovascular Heart sounds: normal: S1, S2 Abnormal Heart Sounds: no S3 Gallop - Gastrointestinal General gastrointestinal: soft, no tenderness Results CBC & Chem 7: 01/04/21 14:31 01/04/21 14:31 Labs: Abnormal Lab Results - Last 24 Hours (Table) 01/04/21 01/04/21 Range/Units 14:31 14:31 RBC 3.42 L (4.30-5.90) m/uL Hgb 12.1 L (13.0-17.5) gm/dL Hct 36.0 L (39.0-53.0) % MCV 105.4 H (80.0-100.0) fL MCH 35.3 H (25.0-35.0) pg Lymphocytes # 0.3 L (1.0-4.8) k/uL Sodium 134 L (137-145) mmol/L Glucose 104 H (74-99) mg/dL AST 79 H (17-59) U/L ALT 74 H (4-49) U/L Alkaline Phosphatase 165 H (38-126) U/L Thrombosis Risk Factor Assmnt - Choose All That Apply Each Risk Factor Represents 3 Points: Age 75 years or older Thrombosis Risk Factor Assessment Total Risk Factor Score: 3 Thrombosis Risk Factor Assessment Level: Moderate Risk Assessment and Plan (1) Chest pain Current Visit: Yes Status: Acute Code(s): R07.9 - CHEST PAIN, UNSPECIFIED SNOMED Code(s): 56955629 Plan: Rule out myocardial infarction. Empiric treatment for pneumonia. Element of COPD also on x-ray. Cardiology is consulted. We will go ahead and continue appropriate antibiotic treatment. Anticipate discharge in next 24 hours if stabilizing. Significant improvement clinically since admission.
[2021-01-05] MEDS ORDERED: CAFFEINE CITRATE 60 MG/3 ML VIAL IV PRN (08:52)
[2021-01-05] MEDS ORDERED: AMINOPHYLLINE 500 MG/20 ML VIAL IV PRN (08:52)
[2021-01-05] MEDS ORDERED: REGADENOSON 0.4 MG/5 ML SYRINGE IV PRN (08:52)
[2021-01-05] MEDS ORDERED: ASPIRIN 325 MG TAB PO SCH (09:00)
--- NOTE | 2021-01-05 09:38 | CONS ---
CONSULTATION ATTENDING DOCTOR: Dr. Nunes. HISTORY OF PRESENT ILLNESS: Mr. Loo is an 80-year-old male followed by Dr. Haynes on a regular basis with a history of hypertension, history of chronic persistent atrial fibrillation who presented with symptoms of chest discomfort. He received his Covid 19 seconds injection early this week, then started to complain of a headache a day after. The headache persisted and yesterday complained of chest heaviness as well. He came into the emergency room to be further evaluated. He is usually active physically, has no exertional chest discomfort or dyspnea on exertion. He denies any dizziness or palpitation. No syncope. No PND, orthopnea, or peripheral edema. He has underwent a myocardial perfusion imaging in 2018 that revealed no evidence of inducible ischemia. His left ventricular systolic function by echocardiography was normal. The patient denies any history of PND, orthopnea, or peripheral edema. He has no history of congestive heart failure or documented obstructive coronary artery disease. His coronary risk factors are remarkable for hypertension, he is nondiabetic, nonsmoker. MEDICATIONS: Include Lopressor 50 in the morning, 25 in the afternoon, Eliquis 5 mg twice a day. REVIEW OF SYSTEMS: RESPIRATORY system: He has no documented history of asthma, emphysema or bronchitis. GI system: No recent GI bleeding. No peptic ulcer disease. system: No dysuria or hematuria. NERVOUS SYSTEM: No stroke or seizure. The patient had Covid 19 infection a few months ago and received monoclonal antibodies treatment. PHYSICAL EXAMINATION: He is an 80-year-old male, alert, oriented, in no apparent distress. Blood pressure 129/70 with a heart rate in the 70s. HEAD: Normocephalic. Eyes: Sclerae anicteric. NECK: Good carotid upstroke. No bruit. No jugular venous distention. LUNGS: Clear to auscultation. HEART: Irregularly irregular S1, S2. No S3 with systolic murmur. No diastolic murmur. No rub. ABDOMEN: Soft, nontender. Positive bowel sounds. No megaly. EXTREMITIES: No edema. Intact distal pulses. LAB DATA: Hemoglobin 12.1. Troponin less than 0.012 for 3 samples. AST of 79, ALT of 74, potassium 4.5. EKG revealed atrial fibrillation, rate of 80, poor R progression, nonspecific ST-T wave changes. Chest x-ray revealed increased density on the lateral margin of the right lower lobe. IMPRESSION: 1. Headache, probably side effects from his Covid 19 vaccination. 2. Episode of chest discomfort, has some atypical features for ischemic disease. No evidence for acute coronary syndrome. 3. History of chronic persistent atrial fibrillation, anticoagulated. 4. History of hypertension. RECOMMENDATIONS: I will continue his present medical regimen. I will proceed with obtaining myocardial perfusion imaging to assess his status and guide his treatment. We will also obtain an echocardiogram with Doppler. Patient was scheduled to undergo an outpatient stress test next month. We will proceed with that today and depending on the results of testing, further recommendations will be made. Thank you for this consult. We will follow with you. MMODL / IJN: [id number] /
[2021-01-05 09:56] LABS: Chol/HDL Ratio 2.02; Cholesterol 119 mg/dL (0-200); Triglycerides <50.0 mg/dL (0.0-149.0)
--- NOTE | 2021-01-05 10:07 | XR ---
EXAMINATION TYPE: XR chest 2V DATE OF EXAM: 01/05/2021 COMPARISON: 01/04/2021 TECHNIQUE: PA and lateral views submitted. HISTORY: Cough possible pneumonia FINDINGS: Heart is enlarged and there is a diffuse interstitial pattern with tiny bilateral effusions. Biapical pleural thickening. Underlying COPD suspected. Arthropathy of the shoulders with hypertrophic and de generative change of the spine. IMPRESSION: 1. Interstitial pattern with cardiomegaly and tiny bilateral effusion correlate for CHF versus inters titial pneumonia.
[2021-01-05] MEDS: APIXABAN 5 MG TAB PO SCH ×2 (11:59→22:21)
[2021-01-05] MEDS: METOPROLOL TARTRATE 50 MG TAB PO SCH (11:59)
[2021-01-05] MEDS: AZITHROMYCIN 500 MG TAB PO SCH (11:59)
--- NOTE | 2021-01-05 14:08 | NM ---
EXAMINATION TYPE: NM stress lexiscan cardiolite DATE OF EXAM: 01/05/2021 COMPARISON: NONE HISTORY: Yes pain TECHNIQUE: After the intravenous administration of 9.5 mCi Tc 99m Sestamibi - Cardiolite resting SPE CT images acquired 55 minutes post injection. The patient received 0.4mg Lexiscan, 24.1 mCi Tc 99m Sestamibi - Stress images obtained [address] injection FINDINGS: Review of stress and rest SPECT images demonstrates no distinct perfusion abnormality. Gated analysi s shows normal wall motion with an estimated left ventricular ejection fraction of 59 %. IMPRESSION: No scintigraphic evidence for reversible ischemia.
--- NOTE | 2021-01-05 15:41 | EST ---
EXERCISE STRESS DATE OF SERVICE: AGE: 80 SEX: M HT: 5'11" WT: 198 lbs PROTOCOL: Lexiscan STAGE: NA DURATION OF EXERCISE: NA HEART RATE REST: 84 BLOOD PRESSURE REST: 139/85 MAXIMUM HEART RATE ACHIEVED: 104 MAXIMUM BLOOD PRESSURE: 140/71 85% MPHR: NA 100% MPHR: NA METS: NA INDICATIONS: Chest pain RESULTS: Baseline rhythm is atrial fibrillation, rate of 84, borderline right axis deviation, nonspecific ST-T wave changes. Baseline blood pressure 139/85 mmHg. Patient received injection of Lexiscan. Electrocardiograph monitoring revealed rare PVCs. There was no evidence of diagnostic ischemic ST deviation. Cardiolite was injected per protocol. CONCLUSION: 1. Nondiagnostic electrocardiograph stress testing. 2. Nuclear images will be reported separately. MMODL / IJN: [id number] /
--- NOTE | 2021-01-05 19:00 | ECHOF ---
Referral Reason: MEASUREMENTS -------- HEIGHT: 180.3 cm WEIGHT: 90.3 kg BP: 129/78 RVIDd: 3.8 cm (< 3.3) IVSd: 1.5 cm (0.6 - 1.1) LVIDd: 4.5 cm (3.9 - 5.3) LVPWd: 1.6 cm (0.6 - 1.1) IVSs: 1.8 cm LVIDs: 2.7 cm LVPWs: 1.6 cm LAESV Index (A-L): 40.88 ml/m Ao Diam: 2.7 cm (2.0 - 3.7) AV Cusp: 1.9 cm (1.5 - 2.6) LA Diam: 4.4 cm (2.7 - 3.8) MV EXCURSION: 22.486 mm (> 18.000) MV EF SLOPE: 105 mm/s (70 - 150) EPSS: 0.4 cm AR PHT: 596 ms RAP: 20.00 mmHg RVSP: 62.61 mmHg FINDINGS -------- Atrial fibrillation. This was a technically adequate study. The left ventricular size is normal. There is moderate concentric left ventricular hypertrophy. O verall left ventricular systolic function is low-normal with, an EF between 50 - 55 %. Left ventric ular fillimg pressure cannot be estimated due to Atrial fibrillation. The right ventricle is mild to moderately enlarged. LA is severely dilated >40 ml/m2 The right atrium is moderately enlarged. Interatrial and interventricular septum intact. There is mild aortic valve sclerosis. There is mild aortic regurgitation. There is no evidence of aortic stenosis. Moderate mitral annular calcification present. Moderate mitral regurgitation is present. Severe tricuspid regurgitation present. There is severe pulmonary hypertension. The right ventric ular systolic pressure, as measured by Doppler, is 62.61mmHg. Trace/mild (physiologic) pulmonic regurgitation. The aortic root size is normal. The inferior vena cava is dilated with poor inspiratory collapse which is consistent with estimated r ight atrial pressure of 20 mmHg. There is no pericardial effusion. CONCLUSIONS -------- 1. Atrial fibrillation. 2. There is moderate concentric left ventricular hypertrophy. 3. Overall left ventricular systolic function is low-normal with, an EF between 50 - 55 %. 4. The right ventricle is mild to moderately enlarged. 5. LA is severely dilated >40 ml/m2 6. The right atrium is moderately enlarged. 7. There is mild aortic regurgitation. 8. Moderate mitral regurgitation is present. 9. Severe tricuspid regurgitation present. 10. There is severe pulmonary hypertension. 11. Trace/mild (physiologic) pulmonic regurgitation. 12. The inferior vena cava is dilated with poor inspiratory collapse which is consistent with estimat ed right atrial pressure of 20 mmHg. BUSINESS ANALYTICS SPECIALIST: Yudith Templeton RDCS
[2021-01-06] MEDS: SODIUM CHLORIDE 0.9% 1,000 ML IV SCH ×2 (04:18→04:19)
[2021-01-06 07:57] VITALS: BP 162/79; PULSE 80; RESP 16; TEMP 97.4
[2021-01-06] MEDS: AZITHROMYCIN 500 MG TAB PO SCH (08:12)
[2021-01-06] MEDS: APIXABAN 5 MG TAB PO SCH (08:13)
[2021-01-06] MEDS: METOPROLOL TARTRATE 50 MG TAB PO SCH (08:13)
--- NOTE | 2021-01-06 08:54 | P.DS ---
Providers Date of admission: 01/04/21 15:16 Attending physician: Arsenio Nunes Consults: 01/04/21 15:16 Consult Physician Urgent Consulting Provider: Ginger Kim Consult Reason/Comments: cp Do you want consulting provider notified?: Yes Primary care physician: Arsenio Nunes - Discharge Diagnosis(es) (1) Chest pain Current Visit: Yes Status: Acute Hospital Course: This discharge summary 6-year-old white male essentially admitted for chest pain with pneumonia. The patient was essentially treated with Lexiscan stress test placed on appropriate oral antibiotics and did quite well. Covid testing was negative. He will be discharged in stable condition tolerating diet with cardiology clearance. Since follow-up with me in about 3 or 4 days Plan - Discharge Summary Discharge Rx Participant: No New Discharge Prescriptions: New Azithromycin [Zithromax] 500 mg PO DAILY #3 tab Continue Apixaban [Eliquis] 5 mg PO BID #60 tab Metoprolol Tartrate [Lopressor] 50 mg PO DAILY Metoprolol Tartrate [Lopressor] 25 mg PO HS Discharge Medication List Apixaban [Eliquis] 5 mg PO BID #60 tab 04/24/17 [Rx] Metoprolol Tartrate [Lopressor] 25 mg PO HS 01/04/21 [History] Metoprolol Tartrate [Lopressor] 50 mg PO DAILY 01/04/21 [History] Azithromycin [Zithromax] 500 mg PO DAILY #3 tab 01/06/21 [Rx] Follow up Appointment(s)/Referral(s): Tangela Haynes MD [STAFF PHYSICIAN] - 2 Weeks Arsenio Nunes MD [Primary Care Provider] - 1-2 days
--- NOTE | 2021-01-06 09:39 | P.PN ---
Subjective Progress Note Date: 01/06/21 HISTORY OF PRESENT ILLNESS: Patient examined this morning at the bedside. Patient underwent Lexiscan stress test yesterday which was negative for ischemia. Echocardiogram completed revealed ejection fraction 50-55%, moderate mitral regurgitation, and severe tricuspid regurgitation. Patient denies any further episodes of chest pain or pressure. He denies shortness of breath. He is anxious to be discharged home today. PHYSICAL EXAM: VITAL SIGNS: Reviewed. GENERAL: Well-developed in no acute distress. NECK: Supple. No JVD or thyromegaly LUNGS: Respirations even and unlabored. Lungs essentially clear to auscultation bilaterally. HEART: Irregular rate and rhythm. S1 and S2 heard. Systolic murmur noted. EXTREMITIES: Normal range of motion. No clubbing or cyanosis. Peripheral pulses intact. No lower extremity edema ASSESSMENT: Headache, s/p recent covid vaccination Chest pain, atypical, stress test negative Chronic persistent atrial fibrillation, anticoagulated with Eliquis Hypertension PLAN: Patient is stable for discharge home today from a cardiac standpoint. He is to follow up outpatient with Dr. Haynes Nurse practitioner note has been reviewed by physician. Signing provider agrees with the documented findings, assessment, and plan of care. Objective - Vital Signs Vital signs: Vital Signs Temp 97.4 F L 01/06/21 07:00 Pulse 80 01/06/21 07:00 Resp 16 01/06/21 07:00 BP 162/79 01/06/21 07:00 Pulse Ox 96 01/06/21 07:00 Intake & Output 01/05/21 01/06/21 01/06/21 18:59 06:59 18:59 Intake Total 480 Balance 480 Weight 90.26 kg Intake: Oral 480 Other: Voiding Method Toilet # Voids 1 2 - Labs CBC & Chem 7: 01/04/21 14:31 01/04/21 14:31 Labs: Microbiology - Last 24 Hours (Table) 01/04/21 14:47 Blood Culture - Preliminary Blood No Growth after 24 hours 01/04/21 14:00 Blood Culture - Preliminary Blood No Growth after 24 hours
== END 2021-01-06 11:05 | disposition home or self-care (01) ==
LOC: EC 12:32 → 6NMEDSUR 15:16
PROVIDERS: ADMIT Family Medicine; ATTEND Family Medicine
DX: R07.89 Other chest pain (principal); J18.9 Pneumonia, unspecified organism; I11.9 Hypertensive heart disease without heart failure; I27.20 Pulmonary hypertension, unspecified; I08.1 Rheumatic disorders of both mitral and tricuspid valves; G44.40 Drug-induced headache, not elsewhere classified, not intractable; T50.B95A Adverse effect of other viral vaccines, initial encounter; I10 Essential (primary) hypertension; M19.90 Unspecified osteoarthritis, unspecified site; I48.19 Other persistent atrial fibrillation; G47.30 Sleep apnea, unspecified; N40.0 Benign prostatic hyperplasia without lower urinary tract symptoms; M19.041 Primary osteoarthritis, right hand; M19.042 Primary osteoarthritis, left hand; G25.81 Restless legs syndrome; K57.90 Diverticulosis of intestine, part unspecified, without perforation or abscess without bleeding; Z20.822 Contact with and (suspected) exposure to COVID-19; Z79.01 Long term (current) use of anticoagulants; Z79.899 Other long term (current) drug therapy; Z88.0 Allergy status to penicillin; Z90.49 Acquired absence of other specified parts of digestive tract; Z98.42 Cataract extraction status, left eye; Z98.41 Cataract extraction status, right eye; Z86.010 Personal history of colon polyps; Z98.52 Vasectomy status; Z98.890 Other specified postprocedural states; Z87.891 Personal history of nicotine dependence; Z87.01 Personal history of pneumonia (recurrent); Z86.19 Personal history of other infectious and parasitic diseases; Z86.16 Personal history of COVID-19; Z83.3 Family history of diabetes mellitus; Z80.1 Family history of malignant neoplasm of trachea, bronchus and lung; Z81.2 Family history of tobacco abuse and dependence
CPT/HCPCS: 96366 ×4; 96365; 96367; 99285; 36415; 93005; 93017; 93306; 85379; 80061; 80053; 82150; 83690; 83735; 84484; 85025; 85610; 85730; 87040; 87635; 71046 ×2; 78452; G0378 ×3; A9500; J0456; J0696 ×3; J2785

== ENCOUNTER → 2023-12-12 | Outpatient (CLI) | payer MEDICARE, BC ==
[2023-12-12 15:09] LABS: HCT 35.5 % (39.6-50.0); HGB 11.8 g/dL (13.0-17.0); MCH 33.7 pg (27.0-32.0); MCHC 33.2 g/dL (32.0-37.0); MCV 101.4 FL (80.0-97.0); Mean Platelet Volume 9.8 FL (9.5-12.2); NRBC Per 100 WBC 0 X 10*3/uL (0.00-0.01); Platelet Count 226 X 10*3/uL (140-440); RDW 13.7 % (11.5-14.5); WBC 4.76 X 10*3/uL (4.50-10.00)
[2023-12-12 15:32] LABS: Blood Urea Nitrogen 20.7 mg/dL (9.0-27.0); Calcium 9.3 mg/dL (8.7-10.3); Carbon Dioxide 22.2 mmol/L (21.6-31.8); Chloride 103 mmol/L (96-109); Glucose 157 mg/dL (70-110); Potassium 4.3 mmol/L (3.5-5.5); Sodium 137 mmol/L (135-145)
[2023-12-12 15:52] LABS: INR 1.11 sec (0.93-1.11); Prothrombin Time 11.9 sec (9.9-11.9)
== END | disposition home or self-care (01) ==
LOC: LABPAT 11:19
PROVIDERS: ATTEND Orthopaedic Surgery
DX: Z01.812 Encounter for preprocedural laboratory examination (principal); M17.12 Unilateral primary osteoarthritis, left knee; Z22.322 Carrier or suspected carrier of Methicillin resistant Staphylococcus aureus
CPT/HCPCS: 80048; 85027; 85610; 87070

== ENCOUNTER 2023-12-24 05:52 | Day surgery (SDC) | payer MEDICARE, BC ==
--- NOTE | 2023-12-23 08:12 | P.HPOR ---
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 He's having pain with weightbearing activities. He notes buckling and locking. He has significant stiffness and swelling. He tried therapy along with previous injections with persistence of his symptoms. He notes daily pain that limits him. Review of Systems As below Past Medical History Past Medical History: Atrial Fibrillation, Chest Pain / Angina, Hearing Disorder / Deafness, Hypertension, Osteoarthritis (OA), Prostate Disorder, Sleep Apnea/CPAP/BIPAP Additional Past Medical History / Comment(s): Occasional RLS. BPH. TETLIN- no hearing aids. No CPAP. History of Any Multi-Drug Resistant Organisms: None Reported Past Surgical History: Appendectomy, Breast Surgery, Cardiac Ablation, Heart Catheterization, Hernia Repair, Orthopedic Surgery Additional Past Surgical History / Comment(s): BILATERAL CATARACTS. Bilateral inguinal hernia repairs. Bilateral knee arthroscopies. EGD/colonoscopy/benign polypectomy. R eye tear duct. R shoulder arthroscopy. Vasectomy. Pt also had [address] Haynes where he states he stopped his heart to get rid of the afib but they were both unsuccessful. Past Anesthesia/Blood Transfusion Reactions: No Reported Reaction Smoking Status: Never smoker - Past Family History Mother Family Medical History: Diabetes Mellitus Additional Family Medical History / Comment(s): Mother lived to be in her 80's. Father Brother(s) Family Medical History: Cancer Additional Family Medical History / Comment(s): Father had lung cancer. He was a smoker. Medications and Allergies Home Medications Medication Instructions Recorded Confirmed Type Apixaban [Eliquis] 5 mg PO BID #60 tab 04/24/17 12/19/23 Rx Metoprolol Tartrate [Lopressor] 25 mg PO HS 01/04/21 12/19/23 History Metoprolol Tartrate [Lopressor] 50 mg PO DAILY 01/04/21 12/19/23 History HYDROcodone/APAP 5-325MG [[place] 1 - 2 tab PO Q8HR PRN 12/19/23 12/19/23 History 5-325] Latanoprost [Latanoprost 0.005%] 1 drop LEFT EYE HS 12/19/23 12/19/23 History Triamcinolone 0.1% Cream [Kenalog 1 applic TOPICAL HS 12/19/23 12/19/23 History 0.1% Cream] Allergies Allergy/AdvReac Type Severity Reaction Status Date / Time Penicillins Allergy Rash/Hives Verified 12/19/23 14:35 Physical Examination - Knee left Appearance: effusion Effusion grade: grade 1 Varus alignment in stance: 10 degrees Tenderness with palpation: anterior, medial Pain: throughout ROM Gait: limping ROM: extension: -15 degrees ROM: flexion: 110 degrees Crepitus with motion: Yes Strength: extension: 5/5 Strength: flexion: 5/5 Meniscal tests: medial meniscal tests: positive, medial joint line pain: positive Results The patient is a well-developed well-nourished male approximately 5 foot 11, 198 pounds of his morbid habitus. HEENT exam is nonfocal, neck is supple. He has painless passive motion of the left hip. Straight leg raise is negative. He is tender about the medial joint line of the left knee. Collaterals are stable, Manohar is negative, Kita's elicits medial pain. His distal neurovascular exam appears intact in the left lower extremity. Assessment and Plan Assessment: Left knee severe tricompartmental osteoarthrosis Atrial fibrillation on anticoagulation Plan: I talked the patient at length regarding his condition along with treatment options. At this point he remains quite symptomatic despite extensive previous conservative measures. After a thorough discussion he opts to proceed with surgery. We'll plan to proceed with left total knee arthroplasty. Risks and benefits were discussed at length in layman's terms. We will reinstitute his Eliquis postoperatively.
[~2023-12-24 05:52] MED LIST changes: -LACTATED RINGERS 1,000 ML IV SCH; +LIDOCAINE 1% (10MG/ML) FOR IV START INTRADERMA PRN; -LIDOCAINE 1% 20 ML VIAL (10MG/ML) FOR IV START INTRADERMA PRN; +TRANEXAMIC 1,000 MG/100ML-NACL 1,000 MG in SALINE 1 100ML.BAG IVPB PRN
[2023-12-24] MEDS: IV FLUID CONTINUATION 1,000 ML IV ONE (06:50)
[2023-12-24] MEDS: LACTATED RINGERS 1,000 ML IV SCH (06:56)
[2023-12-24] MEDS: ONDANSETRON 4 MG/2 ML VIAL IVP ONE (06:57)
[2023-12-24] MEDS: DEXAMETHASONE SOD PHOSPHATE 4 MG/ML 1 ML VIAL IVP STA (06:58)
[2023-12-24] MEDS: MELOXICAM 7.5 MG TAB PO PRN (06:58)
[2023-12-24] MEDS: ACETAMINOPHEN TAB 500 MG TAB PO PRN (06:58)
[2023-12-24] MEDS ORDERED: HYDROmorphone 0.5 MG/0.5 ML SYRINGE IVP PRN ×2 (07:00→09:11)
[2023-12-24] MEDS: fentaNYL (PF) 50 MCG/ML 2 ML AMP IVP STA (07:15)
[2023-12-24] MEDS ORDERED: LIDOCAINE 1% INJ 10MG/ML (20 ML MDV) ONE (07:30)
[2023-12-24] MEDS ORDERED: NEOSTIGMINE 1 MG/ML 10 ML VIAL ONE (07:30)
[2023-12-24] MEDS ORDERED: SODIUM CHLORIDE 0.9% (PF) 10 ML VIAL ONE (07:30)
[2023-12-24] MEDS ORDERED: ROPIVACAINE 5 MG/ML 30 ML VIAL ONE (07:30)
[2023-12-24] MEDS ORDERED: PROPOFOL 10 MG/ML 20 ML VIAL IV ONE (07:30)
[2023-12-24] MEDS ORDERED: MIDAZOLAM 2 MG/2 ML VIAL ONE (07:30)
[2023-12-24] MEDS ORDERED: ROCURONIUM 10 MG/ML (5 ML VIAL) IV ONE (07:30)
[2023-12-24] MEDS ORDERED: HYDROmorphone (PF) 1 MG/ML ONE (07:30)
[2023-12-24] MEDS ORDERED: TRANEXAMIC 1,000 MG/100ML-NACL PREMIX BAG ONE (07:30)
[2023-12-24] MEDS ORDERED: SUCCINYLCHOLINE CHLORIDE 200 MG/10 ML VIAL IV ONE (07:30)
[2023-12-24] MEDS ORDERED: fentaNYL (PF) 50 MCG/ML 2 ML AMP ONE (07:30)
[2023-12-24] MEDS ORDERED: GLYCOPYRROLATE 0.2 MG/ML 2 ML VIAL ONE (07:30)
--- NOTE | 2023-12-24 07:33 | P.ANPRN ---
Procedure Note - Anesthesia - Nerve Block Performed Left Adductor Canal Infusion Time Out Performed: Yes Date of Procedure: 12/24/23 Procedure Start Time: :14 Procedure Stop Time: :21 Location of Patient: PreOp Indication: Acute Post-Operative Pain, Requested by Surgeon Sedation Type: Sedate with meaningful contact maintained Preparation: Sterile Prep, Sterile Dressing Position: Supine Needle Types: Pajunk Needle Gauge: 18 Ultrasound used to visualize needle placement: Yes Ultrasound used to observe medication spread: Yes Injectate: 0.5% Ropivacaine (see comment for volume) (15 ml + 10 ml NS) Blood Aspirated: No Pain Paresthesia on Injection Noted: No Resistance on Injection: Normal Image Stored and Saved: Yes Events: Uneventful and Well Tolerated
--- NOTE | 2023-12-24 07:34 | P.ANPRN ---
Procedure Note - Anesthesia - Nerve Block Performed Left iPack Single Time Out Performed: Yes Date of Procedure: 12/24/23 Procedure Start Time: Procedure Stop Time: Location of Patient: PreOp Indication: Acute Post-Operative Pain, Requested by Surgeon Sedation Type: Sedate with meaningful contact maintained Preparation: Sterile Prep Position: Supine Needle Types: Pajunk Needle Gauge: 21 Ultrasound used to visualize needle placement: Yes Ultrasound used to observe medication spread: Yes Injectate: 0.5% Ropivacaine (see comment for volume) (15 ml + 10 ml NS) Blood Aspirated: No Pain Paresthesia on Injection Noted: No Resistance on Injection: Normal Image Stored and Saved: Yes Events: Uneventful and Well Tolerated
[2023-12-24] MEDS: MIDAZOLAM 2 MG/2 ML VIAL IV STA (07:39)
[2023-12-24] MEDS: ceFAZolin 1,000 MG in SODIUM CHLORIDE 0.9% 1,000 ML IRRIGATION ONE (07:58)
[2023-12-24] MEDS ORDERED: MAGNESIUM HYDROXIDE 2,400 MG/30 ML CUP PO PRN (09:11)
[2023-12-24] MEDS ORDERED: NALOXONE 0.4 MG/ML 1 ML VIAL IV PRN (09:11)
[2023-12-24] MEDS ORDERED: HYDROcodone/APAP 5-325MG 1 EACH TAB PO PRN (09:11)
--- NOTE | 2023-12-24 09:31 | P.OP ---
Date of Procedure: 12/24/23 Preoperative Diagnosis: Left knee severe tricompartmental osteoarthrosis Postoperative Diagnosis: Same Procedure(s) Performed: Left total knee arthroplastyposterior stabilizedcemented Implants: Depuy Attune size 8 cemented femoral component, size 7 cemented tibial component, 13 mm articular surface, 38 mm cemented patellar component. This is a posterior stabilized implant. [facility] Surgeon: Jose Carlos Cuellar Printing Equipment Mechanic Apprentice #1: Yvon Martinez Estimated Blood Loss (ml): 50 Pathology: none sent Condition: stable Disposition: PACU Indications for Procedure: The patient is an 83-year-old male who presents with progressive left knee pain secondary to osteoarthrosis despite conservative measures. A discussion of the risks and benefits of operative intervention versus continued conservative measures was made with the patient. He opted to proceed with surgery. Operative risks include infection, neurovascular injury, development of blood clots, fracture, possible component loosening/failure and possible need for subsequent procedures was discussed. Informed consent was obtained. Operative Findings: As below Description of Procedure: The patient was brought to the operating room, and after induction of spinal anesthesia the left lower extremity was prepped and draped in a normal fashion. The tourniquet was inflated to 270 mm marker. A longitudinal incision extending 3 finger breaths above the superior pole of patella extending to the medial aspect the tibial tubercle was then made. The skin and subcutaneous tissues were divided sharply. Electrocautery was used for hemostasis. A medial parapatellar arthrotomy was performed. The medial soft tissues to include the superficial and deep portions of the medial collateral ligament were elevated s ubperiosteally. The patella was everted. A portion of the retropatellar fat pad was excised sharply. The anterior cruciate ligament was sacrificed. Blunt retractors were placed. A starting hole was made in the distal femur 1 cm anterior to the posterior cruciate ligament origin. An intramedullary femoral guide was then inserted planning on 5 valgus distal cut with 9 mm distal resection. The cutting block was pinned in place. The distal cut was then made. The posterior referencing sizing guide was utilized. I felt size 8 was most appropriate. 3 of external rotation was built into the system and verified off the trans-epicondylar axis and the posterior condyles. The cutting block was pinned in place. The anterior, posterior, and chamfer cuts then made. Bone fragments were removed. The intercondylar guide was placed and the notch cut was made with a sagittal saw. The bone block was removed in one fragment. The trial component was then placed. There is good anterior to posterior and medial to lateral fit. The distal peg holes were drilled. The trial component was removed. Attention was then paid towards preparing the proximal tibia. An extra medullary guide was utilized in line with the tibial shaft and second metatarsal distally. I planned on 1 mm resection from the medial compartment. The cutting block was pinned in place. The proximal tibial cut was then made. The bone was removed in one fragment. The remnants of the medial and lateral menisci were excised at the capsular junction with electrocautery. The tibia sized most appropriately at size 7. The trial femoral and tibial components were placed along with a 13 mm articular surface. I was able to obtain full flexion and extension with internal and external rotation. After several flexi on and extension cycles, the tibial rotation was marked with electrocautery line with the medial one third of the tibial tubercle. Attention was then paid towards preparing the patella. A patella reamer was utilized taking stem to 14 mm of bone stock. A good flush cut was made. The patella sized most appropriately 38 mm. The peg holes were drilled. The trial components placed. I had good patellofemoral tracking with no hands technique. The trial components were then removed. The tibia was prepared in the appropriate rotation with appropriate drill and keel punch. The posterior osteophytes were removed with a curved osteotome. The flexion and extension gaps were checked and felt to be symmetric at 13 mm. A trial components were then removed. The bony surfaces were prepared with pulsatile lavage and dried. The tibial component was then cemented place was fully seated. Excess cement was removed. The femoral component cemented place and was fully seated. Excess cement was removed. The trial 13 mm articular surface was placed and the knee was put in full extension. The patella component was cemented place. After the cement had sufficiently hardened, the knee was again taken through a range of motion. Again I was able to obtain full flexion and extension with varus and valgus stress. The trial 13 mm articular surface was removed and the final one inserted. This was fully seated. Care was taken to avoid any soft tissue interposition. Pulsatile lavage was again utilized. The medial parapatellar arthrotomy was closed with #2 Ethibond suture. The tourniquet was deflated with approximately 60 minutes total tourniquet time. Final hemostasis was obtained with the cautery. There was minimal bleeding therefore a deep drain was not placed. The subcutaneous tissues were reapproximated with interrupted 2-0 Vicryl sutures. The skin was reapproximated with 3-0 subcuticular strata fix suture. Skin tape and adhesive was applied. A sterile dressing was applied. The patient was awoken from sedation and transferred to recovery room in good condition. Blood loss was estimated at 50 mL. No complications were incurred. Sponge and needle counts were correct at the end of the case. Yvon CRISTOBAL assisted during the major components of this case to include exposure, bone resection, implantation, and closure.
--- NOTE | 2023-12-24 09:51 | XR ---
EXAMINATION TYPE: XR knee limited LT DATE OF EXAM: 12/24/2023 COMPARISON: NONE TECHNIQUE: Two views submitted HISTORY: Post op FINDINGS: There is a prosthetic knee in near anatomic alignment. There is soft tissue edema and soft tissue e mphysema/air consistent with recent surgery. IMPRESSION: 1. Postoperative change.
[2023-12-24] MEDS: ROPIVACAINE 1,100 MG, SODIUM CHLORIDE 0.9% 500 ML 330 ML, EMPTY PAIN BALL 1 EACH MISCELLANE PRN (09:55)
[2023-12-24] MEDS: HYDROmorphone 0.5 MG/0.5 ML SYRINGE IVP PRN (13:10)
[2023-12-24] MEDS: HYDROcodone/APAP 7.5-325MG 1 EACH TAB PO PRN (16:17)
[2023-12-24] MEDS: SENNOSIDES-DOCUSATE SODIUM 1 EACH TAB PO SCH (20:35)
[2023-12-24] MEDS: APIXABAN 5 MG TAB PO SCH (20:35)
--- NOTE | 2023-12-25 06:20 | P.PN ---
Progress Note - Text Progress Note Date: 12/25/23 POD 1 from L TKA with adductor canal catheter. Pain controlled with use of pain pump and adjuvant medications. Used 1 dose of hydromorphone and 1 dose of Lebeau. Pain is mostly postero-lateral. Ice helps. elevating the knee. Able to stand last night. Site is clean and dry. Continue with pump and adjuvant pain medications. Dinah Morillo MD.
--- NOTE | 2023-12-25 08:37 | P.CONS ---
History of Present Illness - Reason for Consult Consult date: 12/25/23 - Chief Complaint Left knee arthropathy - History of Present Illness The patient is seen postop day #1 for left knee arthropathy. He is having some mild urinary retention related to side effects from anesthesia. Pain is still somewhat severe. Underlying history hypertension and paroxysmal atrial fibrillation. Blood pressure stable. No fever or chills. No send nausea, vomiting or diarrhea appreciate consultation. Review of Systems Constitutional: Denies chills, Denies fever Eyes: denies blurred vision, denies pain Ears, nose, mouth and throat: Denies headache, Denies sore throat Cardiovascular: Denies chest pain, Denies shortness of breath Gastrointestinal: Denies abdominal pain, Denies diarrhea, Denies nausea, Denies vomiting Past Medical History Past Medical History: Atrial Fibrillation, Chest Pain / Angina, Hearing Disorder / Deafness, Hypertension, Osteoarthritis (OA), Prostate Disorder, Sleep Apnea/CPAP/BIPAP Additional Past Medical History / Comment(s): Occasional RLS. BPH. [place]- no hearing aids. No CPAP. History of Any Multi-Drug Resistant Organisms: None Reported Past Surgical History: Appendectomy, Breast Surgery, Cardiac Ablation, Heart Catheterization, Hernia Repair, Orthopedic Surgery Additional Past Surgical History / Comment(s): BILATERAL CATARACTS. Bilateral inguinal hernia repairs. Bilateral knee arthroscopies. EGD/colonoscopy/benign polypectomy. R eye tear duct. R shoulder arthroscopy. Vasectomy. Pt also had [address] Haynes where he states he stopped his heart to get rid of the afib but they were both unsuccessful. Past Anesthesia/Blood Transfusion Reactions: No Reported Reaction Past Psychological History: No Psychological Hx Reported Additional Psychological History / Comment(s): Pt resides with his spouse. He is independent. 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 Smoking Status: Never smoker Past Alcohol Use History: Occasional Additional Past Alcohol Use History / Comment(s): drinks one rum and coke daily- instructed no alcohol 24 hrs prior to surg. Past Drug Use History: None Reported - Past Family History Mother Family Medical History: Diabetes Mellitus Additional Family Medical History / Comment(s): Mother lived to be in her 80's. Father Brother(s) Family Medical History: Cancer Additional Family Medical History / Comment(s): Father had lung cancer. He was a smoker. Medications and Allergies Home Medications Medication Instructions Recorded Confirmed Type Apixaban [Eliquis] 5 mg PO BID #60 tab 04/24/17 12/24/23 Rx Metoprolol Tartrate [Lopressor] 25 mg PO HS 01/04/21 12/24/23 History Metoprolol Tartrate [Lopressor] 50 mg PO DAILY 01/04/21 12/24/23 History HYDROcodone/APAP 5-325MG [[place] 1 - 2 tab PO Q8HR PRN 12/19/23 12/24/23 History 5-325] Latanoprost [Latanoprost 0.005%] 1 drop LEFT EYE HS 12/19/23 12/24/23 History Triamcinolone 0.1% Cream [Kenalog 1 applic TOPICAL HS 12/19/23 12/24/23 History 0.1% Cream] Allergies Allergy/AdvReac Type Severity Reaction Status Date / Time Penicillins Allergy Rash/Hives Verified 12/19/23 14:35 Physical Exam Vitals: Vital Signs Temp Pulse Pulse Resp BP Pulse Ox 12/25/23 06:59 98.4 F 95 17 129/71 95 12/25/23 00:54 98.4 F 69 16 121/68 95 12/24/23 19:29 98.2 F 75 15 122/68 96 12/24/23 13:40 97.8 F 83 14 105/60 98 12/24/23 12:00 77 134/77 98 12/24/23 11:45 69 139/78 99 12/24/23 11:30 61 136/80 99 12/24/23 11:15 68 130/74 97 12/24/23 11:00 68 141/78 98 12/24/23 10:49 97.4 F L 98 14 150/78 98 12/24/23 10:30 73 14 130/72 100 12/24/23 10:15 66 14 129/70 98 12/24/23 10:00 64 14 132/71 100 12/24/23 09:45 61 14 121/68 99 12/24/23 09:32 98 F 83 13 145/64 97 Intake and Output 12/24/23 12/25/23 12/25/23 22:59 06:59 14:59 Intake Total 550 Output Total 700 Balance 550 -700 Intake: Oral 550 Output: Urine 350 Straight 350 Post Void Residual 350 Other: Voiding Method Urinal # Voids 1 - Constitutional General appearance: no acute distress - EENT Eyes: EOMI - Neck Neck: no lymphadenopathy - Respiratory Respiratory: bilateral: CTA - Cardiovascular Rhythm: regular Heart sounds: normal: S1, S2 Abnormal Heart Sounds: no S3 Gallop - Gastrointestinal General gastrointestinal: soft, no tenderness Assessment and Plan (1) Knee arthropathy Current Visit: Yes Status: Acute Code(s): M17.10 - UNILATERAL PRIMARY OSTEOARTHRITIS, UNSPECIFIED KNEE SNOMED Code(s): 503179712 (2) Hypertension Current Visit: No Status: Acute Code(s): I10 - ESSENTIAL (PRIMARY) HYPERTENSION SNOMED Code(s): 46057920 (3) New onset atrial fibrillation Current Visit: No Status: Acute Code(s): I48.91 - UNSPECIFIED ATRIAL FIBRILLATION SNOMED Code(s): 51539192 Plan: Start metoprolol. Pain control via surgical team. GI and DVT prophylaxis as per protocol. Flomax for urinary retention elements. See orders otherwise.
[2023-12-25] MEDS: TAMSULOSIN 0.4 MG CAP.ER.24H PO SCH (09:08)
[2023-12-25] MEDS: METOPROLOL TARTRATE 50 MG TAB PO SCH (09:08)
[2023-12-25 10:59] LABS: Basophils # (A) 0.01 X 10*3/uL (0.00-0.10); Basophils % (A) 0.1 %; Eosinophils # (A) 0.01 X 10*3/uL (0.04-0.35); Eosinophils % (A) 0.1 %; HCT 28.1 % (39.6-50.0); HGB 9.3 g/dL (13.0-17.0); Immature Platelet Fraction 2.7 % (1.1-6.1); Lymphocytes # (A) 0.71 X 10*3/uL (0.90-5.00); Lymphocytes % (A) 9.3 %; MCH 33.7 pg (27.0-32.0); MCHC 33.1 g/dL (32.0-37.0); MCV 101.8 FL (80.0-97.0); Mean Platelet Volume 9.7 FL (9.5-12.2); Monocytes # (A) 0.77 X 10*3/uL (0.20-1.00); NRBC Per 100 WBC 0 X 10*3/uL (0.00-0.01); Neutrophils # (A) 6.13 X 10*3/uL (1.80-7.70); Platelet Count 179 X 10*3/uL (140-440); RBC 2.76 X 10*6/uL (4.40-5.60); RDW 13.9 % (11.5-14.5); WBC 7.67 X 10*3/uL (4.50-10.00)
--- NOTE | 2023-12-25 12:36 | P.PN ---
Subjective Progress Note Date: 12/25/23 Principal diagnosis: Left knee osteoarthritis Patient was seen at bedside this morning sitting up in chair with dressing present over left knee. Patient says he did work with therapy this morning and says it went okay. Patient says he has not been able to urinate on his own sin ce surgery yesterday. Patient denies any previous issues with retention. Medicine did prescribe dose of Flomax. Patient says he has not had a bowel yet, however, patient says he has not passed gas. Patient says she has a couple steps into his home and will be able to stay on the main level. Patient says his will help him out once he is home. Patient says he does have a walker at home. Patient says his knee is in a fair amount of pain, but is also complaining of some left ankle pain which has been ongoing for the past 2 years since a fall. Patient denies chest pain, fever, shortness of breath, nausea, vomiting, change in vision, loss of bowel/bladder control. Objective - Vital Signs Vital signs: Vital Signs Temp 98.4 F 12/25/23 06:59 Pulse 95 12/25/23 08:15 Resp 17 12/25/23 08:15 BP 129/71 12/25/23 06:59 Pulse Ox 96 12/25/23 08:48 FiO2 Intake & Output 12/24/23 12/25/23 12/25/23 18:59 06:59 18:59 Intake Total 1201 Output Total 50 700 Balance 1151 -700 Weight 91.9 kg Intake: IV 651 Oral 550 Output: Urine 350 Straight 350 Post Void Residual 350 Estimated Blood Loss 50 Other: Voiding Method Urinal Urinal # Voids 1 - Exam Left knee: Incision is clean, dry, and intact. The exofin fusion tape is in good condition. There is minimal soft tissue swelling and ecchymosis surrounding the medial and lateral aspects of the incision. Calf is soft, no tenderness with palpation. Plantar flexion, dorsiflexion, EHL, FHL are intact. Sensory exam to light touch throughout the extremity is intact, dorsal pedis pulses 2+. - Labs CBC & Chem 7: 12/25/23 07:21 Labs: Abnormal Lab Results - Last 24 Hours (Table) 12/25/23 Range/Units 07:21 RBC 2.76 L (4.40-5.60) X 10*6/uL Hgb 9.3 L (13.0-17.0) g/dL Hct 28.1 L (39.6-50.0) % MCV 101.8 H (80.0-97.0) FL MCH 33.7 H (27.0-32.0) pg Lymphocytes # 0.71 L (0.90-5.00) X 10*3/uL Eosinophils # 0.01 L (0.04-0.35) X 10*3/uL Assessment and Plan Assessment: 1. Left knee osteoarthritis -Postop day 1 status post left total knee arthroplasty Plan: 1. Left knee osteoarthritis -left total knee arthroplasty form yesterday, 12/24/2023left total knee arthroplasty. Patient stable at bedside this morning. PT recommending 1 additional day for pain control and therapy. Patient unable to urinate so far. Medicine ordered dose of Flomax. Consult urology due to urinary retention. Weightbearing as tolerated with walker and assistance as needed. Pain medication as needed. We will continue to follow patient during stay in hospital. Plan for discharge home tomorrow with health services. 2. Appreciate medical management 3. Pain management -[place] 4. DVT prophylaxis -Eliquis 5. GI prophylaxis -senna 6. PT/OT -weight-bearing as tolerated with walker and assistance 7. Encourage incentive spirometer use 8. Discharge planning -plan for discharge home tomorrow with health services Time with Patient: Less than 30
--- NOTE | 2023-12-25 19:27 | P.GSCN ---
History of Present Illness Consult date: 12/25/23 History of present illness: 83 yo male who underwent a lt knee arthroplasty. He has been having problems voiding post op. We were asked to see for urinary retention. The patient was cathed x2 last nite, one for [address] Nunes placed him on flomax. He still had problems voiding and a catheter was placed this afternoon for about 400ml. The patient denies problems voiding prior to this surgery. He has not had to see a urologist prior. He was not on flomax. He has not had a uti, hematuria, incontinence. there are no major problems with his back . He hads no major bowel issues. Review of Systems All systems: negative - Constitutional Denies fever, Denies weight loss - EENT Eyes: denies blurred vision Ears, nose, mouth and throat: Denies dysphagia - Cardiovascular Denies chest pain, Denies shortness of breath - Respiratory Denies cough, Denies 7 - Gastrointestinal Reports as per HPI - Genitourinary Denies dysuria, Denies hematuria - Integumentary Denies rash, Denies unusual bruising - Neurological Denies headaches, Denies syncope - Hematologic/Lymphatic Denies easy bleeding, Denies easy bruising Past Medical History Past Medical History: Atrial Fibrillation, Chest Pain / Angina, Hearing Disorder / Deafness, Hypertension, Osteoarthritis (OA), Prostate Disorder, Sleep Apnea/CPAP/BIPAP Additional Past Medical History / Comment(s): Occasional RLS. BPH. [place]- no hearing aids. No CPAP. History of Any Multi-Drug Resistant Organisms: None Reported Past Surgical History: Appendectomy, Breast Surgery, Cardiac Ablation, Heart Catheterization, Hernia Repair, Orthopedic Surgery Additional Past Surgical History / Comment(s): BILATERAL CATARACTS. Bilateral inguinal hernia repairs. Bilateral knee arthroscopies. EGD/colonoscopy/benign polypectomy. R eye tear duct. R shoulder arthroscopy. Vasectomy. Pt also had [address] Haynes where he states he stopped his heart to get rid of the afib but they were both unsuccessful. Past Anesthesia/Blood Transfusion Reactions: No Reported Reaction Past Psychological History: No Psychological Hx Reported Additional Psychological History / Comment(s): Pt resides with his spouse. He is independent. 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 Smoking Status: Never smoker Past Alcohol Use History: Occasional Additional Past Alcohol Use History / Comment(s): drinks one rum and coke daily- instructed no alcohol 24 hrs prior to surg. Past Drug Use History: None Reported - Past Family History Mother Family Medical History: Diabetes Mellitus Additional Family Medical History / Comment(s): Mother lived to be in her 80's. Father Brother(s) Family Medical History: Cancer Additional Family Medical History / Comment(s): Father had lung cancer. He was a smoker. Medications and Allergies Home Medications Medication Instructions Recorded Confirmed Type Apixaban [Eliquis] 5 mg PO BID #60 tab 04/24/17 12/24/23 Rx Metoprolol Tartrate [Lopressor] 25 mg PO HS 01/04/21 12/24/23 History Metoprolol Tartrate [Lopressor] 50 mg PO DAILY 01/04/21 12/24/23 History HYDROcodone/APAP 5-325MG [[place] 1 - 2 tab PO Q8HR PRN 12/19/23 12/24/23 History 5-325] Latanoprost [Latanoprost 0.005%] 1 drop LEFT EYE HS 12/19/23 12/24/23 History Triamcinolone 0.1% Cream [Kenalog 1 applic TOPICAL HS 12/19/23 12/24/23 History 0.1% Cream] Allergies Allergy/AdvReac Type Severity Reaction Status Date / Time Penicillins Allergy Rash/Hives Verified 12/19/23 14:35 Surgical - Exam Vital Signs Temp Pulse Resp BP Pulse Ox 97.7 F 77 16 149/72 95 12/24/23 06:41 12/24/23 06:41 12/24/23 06:41 12/24/23 06:41 12/24/23 06:41 - General well developed, well nourished, no distress - Eyes normal ocular movement, no icteric - ENT no hearing loss, no congestion - Neck no masses, trachea midline - Respiratory normal respiratory effort, clear to auscultation - Abdomen Abdomen: soft, non tender, no guarding, no rigid, no rebound - Integumentary no rash, no abnormal pigmentation - Neurologic no disoriented, no combative - Psychiatric oriented to time, oriented to person, oriented to place, speech is normal, memory intact Results - Labs 12/25/23 07:21 Abnormal Lab Results - Last 24 Hours (Table) 07/24/24 Range/Units 07:21 RBC 2.76 L (4.40-5.60) X 10*6/uL Hgb 9.3 L (13.0-17.0) g/dL Hct 28.1 L (39.6-50.0) % MCV 101.8 H (80.0-97.0) FL MCH 33.7 H (27.0-32.0) pg Lymphocytes # 0.71 L (0.90-5.00) X 10*3/uL Eosinophils # 0.01 L (0.04-0.35) X 10*3/uL Assessment and Plan Assessment: Impression: post op urinary difficulties with retention Plan: The patients catheter should remain in place for at least 48 hours. He has been started on flomax. If he cant urinate adequately prior to admission he would undergo a voiding trial as an outpatient This has been discussed with the patient and his . Time with Patient: Greater than 30
[2023-12-25] MEDS: METOPROLOL TARTRATE 25 MG TAB PO SCH (20:38)
[2023-12-25] MEDS: LATANOPROST 0.005% OPHTH DROPS 2.5 ML BTL LEFT EYE SCH (21:12)
--- NOTE | 2023-12-26 07:49 | P.PN ---
Progress Note - Text Progress Note Date: 12/26/23 The patient went into urine retention post knee arthroplasty. A catheter was placed yesterday. He was started on flomax. He didnot have significant voiding symptoms pre op. He tolerated the catheter last night. His vss. the catheter should remain inplace until at least tomorrow. It can be removed for a voiding trial then I suspect that he will void without problems then. We will follow.
--- NOTE | 2023-12-26 08:42 | P.PN ---
Subjective Progress Note Date: 12/26/23 This is an 83-year-old male who is postop day #2 for left knee arthroplasty. Postoperatively patient developed some urinary retention. He was seen and evaluated by urology who is recommending Baig catheter until tomorrow and the addition of Flomax. Patient is passing gas, however has not had a bowel mo vement yet. He reports he took a laxative last night. Patient is seen this morning sitting up in bed. He reports pain is well-controlled. Vitals are stable. Objective - Vital Signs Vital signs: Vital Signs Temp 98.7 F 12/26/23 07:04 Pulse 93 12/26/23 07:04 Resp 18 12/26/23 07:04 BP 133/84 12/26/23 07:04 Pulse Ox 92 L 12/26/23 07:04 FiO2 Intake & Output 12/25/23 12/26/23 12/26/23 18:59 06:59 18:59 Output Total 400 525 Balance -400 -525 Output: Urine 400 525 Uretheral (Baig) 525 Other: Voiding Method Urinal Indwelling Catheter - Constitutional General appearance: Present: cooperative, no acute distress - EENT Eyes: Present: PERRLA - Neck Neck: Present: normal ROM. Absent: lymphadenopathy, rigidity - Respiratory Respiratory: bilateral: CTA - Cardiovascular Heart sounds: normal: S1, S2 - Gastrointestinal General gastrointestinal: Present: soft. Absent: tenderness - Integumentary Integumentary: Present: normal, normal turgor - Psychiatric Psychiatric: Present: A&O x's 3, appropriate affect, intact judgment & insight - Labs CBC & Chem 7: 12/25/23 07:21 Labs: Abnormal Lab Results - Last 24 Hours (Table) 12/25/23 Range/Units 07:21 RBC 2.76 L (4.40-5.60) X 10*6/uL Hgb 9.3 L (13.0-17.0) g/dL Hct 28.1 L (39.6-50.0) % MCV 101.8 H (80.0-97.0) FL MCH 33.7 H (27.0-32.0) pg Lymphocytes # 0.71 L (0.90-5.00) X 10*3/uL Eosinophils # 0.01 L (0.04-0.35) X 10*3/uL Assessment and Plan (1) Atrial fibrillation Current Visit: Yes Status: Acute Code(s): I48.91 - UNSPECIFIED ATRIAL FIBRILLATION SNOMED Code(s): 09341356 (2) Urinary retention Current Visit: Yes Status: Acute Code(s): R33.9 - RETENTION OF URINE, UNSPECIFIED SNOMED Code(s): 690710987 (3) Knee arthropathy Current Visit: Yes Status: Acute Code(s): M17.10 - UNILATERAL PRIMARY OSTEOARTHRITIS, UNSPECIFIED KNEE SNOMED Code(s): 538287532 (4) Hypertension Current Visit: No Status: Acute Code(s): I10 - ESSENTIAL (PRIMARY) HYPERTENSION SNOMED Code(s): 16805801 Plan: Continue Baig catheter for today as ordered by urology Continue to follow-up surgeon's postop instructions Patient seen and evaluated by nurse practitioner, physician in agreement with plan
--- NOTE | 2023-12-26 12:06 | P.PN ---
Subjective Progress Note Date: 12/26/23 Principal diagnosis: Left knee osteoarthritis Patient was seen at bedside this morning sitting up in chair w/ dressing present over left knee. Patient says he did work with therapy this morning and says it went much better than yesterday. ambrocio currently in place; urology following. Patient says he has not had a bowel movement yet, however, patient says he has passed gas. Patient says his will help him out once he is home. Patient says he does have a walker at home. Patient says knee pain has eased a bit since yesterday. Patient denies chest pain, fever, shortness of breath, nausea, vomiting, change in vision, loss of bowel/bladder control. Objective - Vital Signs Vital signs: Vital Signs Temp 98.7 F 12/26/23 07:04 Pulse 93 12/26/23 10:50 Resp 18 12/26/23 08:52 BP 133/84 12/26/23 07:04 Pulse Ox 92 L 12/26/23 07:04 FiO2 Intake & Output 12/25/23 12/26/23 12/26/23 18:59 06:59 18:59 Output Total 400 525 Balance -400 -525 Output: Urine 400 525 Uretheral (Ambrocio) 525 Other: Voiding Method Urinal Indwelling Catheter Indwelling Catheter - Exam Left knee: Incision is clean, dry, and intact. The exofin fusion tape is in good condition. There is minimal soft tissue swelling and ecchymosis surrounding the medial and lateral aspects of the incision. Calf is soft, no tenderness with palpation. Plantar flexion, dorsiflexion, EHL, FHL are intact. Sensory exam to light touch throughout the extremity is intact, dorsal pedis pulses 2+. - Labs CBC & Chem 7: 12/25/23 07:21 Assessment and Plan Assessment: 1. Left knee osteoarthritis -Postop day 2 status post left total knee arthroplasty Plan: 1. Left knee osteoarthritis -left total knee arthroplasty form yesterday, 12/24/2023left total knee arthroplasty. Patient stable at bedside this morning. PT recommending 1 additional day for pain control and therapy. Ambrocio in place. Patient on flomax. urology following. Weightbearing as tolerated with walker and assistance as needed. Pain medication as needed. We will continue to follow patient during stay in hospital. Discharge home tomorrow with health services. 2. Appreciate medical management 3. Pain management -[place] 4. DVT prophylaxis -Eliquis 5. GI prophylaxis -senna 6. PT/OT -weight-bearing as tolerated with walker and assistance 7. Encourage incentive spirometer use 8. Discharge planning -Discharge home tomorrow with health services Time with Patient: Less than 30
[2023-12-27 07:35] VITALS: BP 127/77; PULSE 77; RESP 18; TEMP 98.9
--- NOTE | 2023-12-27 08:19 | P.PN ---
Subjective Progress Note Date: 12/27/23 Principal diagnosis: The patient is an 83-year-old white male with postop day #3 for left knee arthroplasty. Postop urinary retention. Baig catheter has been removed. The patient is complaining of rash in between the left first and second digit. I do suspect it is tinea. The patient states he has appropriate nystatin at home from previous treatment. No diarrhea. Awaiting urinary flow. Pain is nominal. Objective - Vital Signs Vital signs: Vital Signs Temp 98.9 F 12/27/23 07:35 Pulse 77 12/27/23 07:35 Resp 18 12/27/23 07:35 BP 127/77 12/27/23 07:35 Pulse Ox 95 12/27/23 07:35 FiO2 Intake & Output 12/26/23 12/27/23 12/27/23 18:59 06:59 18:59 Output Total 1300 3000 Balance -1300 -3000 Output: Urine 1300 3000 Uretheral (Baig) 2000 Other: Voiding Method Indwelling Catheter Indwelling Catheter - Constitutional General appearance: Present: average body habitus, cooperative, no acute distress - EENT Eyes: Absent: abnormal pupil - Neck Neck: Absent: lymphadenopathy - Respiratory Respiratory: bilateral: diminished - Cardiovascular Rhythm: regular Heart sounds: normal: S1, S2 Abnormal Heart Sounds: Absent: S3 Gallop - Gastrointestinal General gastrointestinal: Present: soft. Absent: tenderness - Neurologic Neurologic: Present: CNII-XII intact - Psychiatric Psychiatric: Present: A&O x's 3 - Labs CBC & Chem 7: 12/25/23 07:21 Assessment and Plan (1) Knee arthropathy Status: Acute Code(s): M17.10 - UNILATERAL PRIMARY OSTEOARTHRITIS, UNSPECIFIED KNEE SNOMED Code(s): 167847271 (2) Hypertension Status: Acute Code(s): I10 - ESSENTIAL (PRIMARY) HYPERTENSION SNOMED Code(s): 02643609 (3) New onset atrial fibrillation Status: Acute Code(s): I48.91 - UNSPECIFIED ATRIAL FIBRILLATION SNOMED Code(s): 26601444 Plan: Start metoprolol. Pain control via surgical team. GI and DVT prophylaxis as per protocol. Flomax for urinary retention elements. Appreciate neurology input. Anticipate discharge today
[2023-12-27 08:35] LABS: Basophils # (A) 0.02 X 10*3/uL (0.00-0.10); Basophils % (A) 0.3 %; Eosinophils # (A) 0.03 X 10*3/uL (0.04-0.35); Eosinophils % (A) 0.4 %; HCT 25.9 % (39.6-50.0); HGB 8.6 g/dL (13.0-17.0); Lymphocytes # (A) 0.89 X 10*3/uL (0.90-5.00); Lymphocytes % (A) 12.8 %; MCH 33.6 pg (27.0-32.0); MCHC 33.2 g/dL (32.0-37.0); MCV 101.2 FL (80.0-97.0); Mean Platelet Volume 9.6 FL (9.5-12.2); Monocytes # (A) 0.67 X 10*3/uL (0.20-1.00); Monocytes % (A) 9.6 %; NRBC Per 100 WBC 0 X 10*3/uL (0.00-0.01); Neutrophils # (A) 5.34 X 10*3/uL (1.80-7.70); Neutrophils % (A) 76.6 %; Platelet Count 167 X 10*3/uL (140-440); RBC 2.56 X 10*6/uL (4.40-5.60); RDW 13.6 % (11.5-14.5); WBC 6.97 X 10*3/uL (4.50-10.00)
--- NOTE | 2023-12-27 08:38 | P.PN ---
Subjective Progress Note Date: 12/27/23 Principal diagnosis: Status post left total knee arthroplasty Patient evaluated today at bedside, he is sitting up having breakfast. He has continued to do better with physical therapy. Urinary catheter was removed earlier this morning for trial of void, he is being followed by urology. Pain is controlled he states. Denies headaches, lightheadedness, chest pain, shortness of breath. Objective - Vital Signs Vital signs: Vital Signs Temp 98.9 F 12/27/23 07:35 Pulse 77 12/27/23 07:35 Resp 18 12/27/23 07:35 BP 127/77 12/27/23 07:35 Pulse Ox 96 12/27/23 08:23 FiO2 Intake & Output 12/26/23 12/27/23 12/27/23 18:59 06:59 18:59 Output Total 1300 3000 Balance -1300 -3000 Output: Urine 1300 3000 Uretheral (Baig) 2000 Other: Voiding Method Indwelling Catheter Indwelling Catheter - Exam Left lower extremity: Incision is clean, dry, and intact. The exofin fusion tape is in good condition. There is minimal soft tissue swelling and ecchymosis surrounding the medial and lateral aspects of the incision. Calf is soft, no tenderness with palpation. Plantar flexion, dorsiflexion, EHL, FHL are intact. Sensory exam to light touch throughout the extremity is intact, dorsal pedis pulses 2+. - Labs CBC & Chem 7: 12/27/23 05:28 Labs: Abnormal Lab Results - Last 24 Hours (Table) 12/27/23 Range/Units 05:28 RBC 2.56 L (4.40-5.60) X 10*6/uL Hgb 8.6 L (13.0-17.0) g/dL Hct 25.9 L (39.6-50.0) % MCV 101.2 H (80.0-97.0) FL MCH 33.6 H (27.0-32.0) pg Lymphocytes # 0.89 L (0.90-5.00) X 10*3/uL Eosinophils # 0.03 L (0.04-0.35) X 10*3/uL Assessment and Plan Assessment: Postoperative day #2 status post left total knee arthroplasty Postop urinary retention Other medical comorbidities Plan: Pain control, plan for discharge home on [place] 7.5 mg / 325 mg. Will utilize stool softeners also at discharge DVT prophylaxis, patient has resumed his normally prescribed Eliquis Flomax 0.4 mg at discharge, if patient is unable to void likely replace urinary catheter with follow-up with urology Home PT/OT Wound care instructions were discussed, this to include icing and elevating along with showering Remove On-Q pain catheter prior to discharge today Medical recommendations appreciated Discharge planning: Discharge home today Time with Patient: Less than 30
--- NOTE | 2023-12-27 08:43 | P.DS ---
Providers Date of admission: 12/24/2023 Expected date of discharge: 12/27/23 Attending physician: Jose Carlos Cuellar Consults: 12/24/23 09:11 Consult Physician Routine Consulting Provider: Arsenio Nunes Consult Reason/Comments: s/p left total knee arthroplasty Do you want consulting provider notified?: Yes 12/25/23 12:36 Consult Physician Routine Consulting Provider: Burton Diaz Consult Reason/Comments: urinary retention s/p left total knee arthroplasty Do you want consulting provider notified?: Yes Primary care physician: Arsenio Nunes Hospital Course: Date of admission: 12/24/2023 Date of discharge: 12/27/2023 Admission diagnosis: Status post left total knee arthroplasty Discharge diagnosis: Same Attending physician: Dr. Cuellar Surgical procedures: Left total knee arthroplasty Brief history: Patient is a 83-year-old male with a history of progressive primary left knee osteoarthritis. At this point patient has failed conservative treatment measures and has opted to proceed with a elective left total knee arthroplasty. Hospital course: Details of patient's surgery can be found in operative report. Patient tolerated the procedure well and was subsequently transported to orthopedic floor. Patient's orthopeidc and medical care was provided daily. Patient had daily laboratory tests performed for evaluation of overall blood counts. Patient had daily physical therapy to include strengthening range of motion as well as education with walker ambulation. Patient was treated with Eliquis for their postoperative DVT prophylaxis during their inpatient stay. Patient was noted to have a relatively uneventful postoperative course. Patient reported satisfactory pain control with oral pain medications by postoperative day 3. Patient showed satisfactory progress with physical therapy. Patient moved steadily through the program and had no difficulty meeting the goals by postoperative day 3. Given patient's otherwise satisfactory course and having met physical therapy goals, plan is to discharge patient home on postoperative day 3. Discharge condition/disposition: Patient will be discharged home in stable condition. Discharge medications: Instructions are given on resumption of patient's normal daily medications per primary care recommendation, in addition patient will be prescribed [place] 7.5 mg / 325 mg, senna S, MiraLAX 17 g, Flomax 0.4 mg. Discharge instructions: 1. Wound care and infection precautions, keep incision dry and covered while showering, no lotions, creams, moisturizers. No soaking, tubs, pools, hottubs. Do not scrub over the incision. 2. Weight-bear as tolerated with walker / cane until follow-up. 3. Ice and elevate when necessary. Do not exceed 20 minutes per hour with ice pack. 4. Utilize compression sleeve until seen at first follow up appointment. 5. Visiting nursing care. 6. Home physical therapy including home CPM. 7. Pain meds and anticoagulants per prescription. 8. Pain medication has potential to cause constipation. Increase oral fluid and fiber intake. Contact primary care provider if you have not had a bowel movement within 48 hours after discharge 9. No anti-inflammatory medication until discussed at first post operative visit, this including Motrin, Aleve, Mobic, Diclofenac. 10. Follow up in office at 2 weeks postop with Quincy Simmons PA-C/Yvon Cook 11. Follow up with your primary care doctor 7-10 days after discharge. 12. Contact [facility] with any questions, . Procedures: Left total knee arthroplasty Patient Condition at Discharge: Good Plan - Discharge Summary Discharge Rx Participant: Yes New Discharge Prescriptions: New Tamsulosin [Flomax] 0.4 mg PO DAILY #14 cap Sennosides/Docusate Sodium [Senna-S 8.6-50 mg Tablet] 2 each PO DAILY PRN #30 tablet PRN Reason: Constipation polyethylene glycoL 3350 [Miralax] 17 gm PO DAILY PRN #21 packet PRN Reason: Constipation HYDROcodone/APAP 7.5-325MG [[place] 7.5] 1 each PO Q6HR PRN #28 tab PRN Reason: Pain Discontinued HYDROcodone/APAP 5-325MG [[place] 5-325] 1 - 2 tab PO Q8HR PRN PRN Reason: Pain No Action Apixaban [Eliquis] 5 mg PO BID #60 tab Metoprolol Tartrate [Lopressor] 50 mg PO DAILY Metoprolol Tartrate [Lopressor] 25 mg PO HS Latanoprost [Latanoprost 0.005%] 1 drop LEFT EYE HS Triamcinolone 0.1% Cream [Kenalog 0.1% Cream] 1 applic TOPICAL HS Discharge Medication List Apixaban [Eliquis] 5 mg PO BID #60 tab 04/24/17 [Rx] Metoprolol Tartrate [Lopressor] 25 mg PO HS 01/04/21 [History] Metoprolol Tartrate [Lopressor] 50 mg PO DAILY 01/04/21 [History] Latanoprost [Latanoprost 0.005%] 1 drop LEFT EYE HS 12/19/23 [History] Triamcinolone 0.1% Cream [Kenalog 0.1% Cream] 1 applic TOPICAL HS 12/19/23 [History] HYDROcodone/APAP 7.5-325MG [[place] 7.5] 1 each PO Q6HR PRN #28 tab 12/27/23 [Rx] Sennosides/Docusate Sodium [Senna-S 8.6-50 mg Tablet] 2 each PO DAILY PRN #30 tablet 12/27/23 [Rx] Tamsulosin [Flomax] 0.4 mg PO DAILY #14 cap 12/27/23 [Rx] polyethylene glycoL 3350 [Miralax] 17 gm PO DAILY PRN #21 packet 12/27/23 [Rx] Follow up Appointment(s)/Referral(s): Yvon Martinez, ENE [PHYSICIAN CURRICULUM DEVELOPMENT SPECIALIST] - 01/09/24 9:10 am [facility] Visiting Nurse, [NON-STAFF] - As Needed Patient Instructions/Handouts: Knee Replacement (DC), Knee Replacement (GEN) Activity/Diet/Wound Care/Special Instructions: Orthopedic Discharge Instructions: 1. Wound care and infection precautions, keep incision dry and covered while showering, no lotions, creams, moisturizers. No soaking, pools, hot tubs. Do not scrub over incision. 2. Weight-bear as tolerated with walker / cane until follow-up. 3. Ice and elevate when necessary. Do not exceed 20 minutes per hour with ice pack. 4. Utilize compression sleeve until seen at first follow up appointment. 5. Pain meds and anticoagulants per prescription. 6. Pain medication has potential to cause constipation. Increase oral fluid and fiber intake. Contact primary care provider if you have not had a bowel movement within 48 hours after discharge. 7. No anti-inflammatory medication until discussed at first post operative visit, this including Motrin, Aleve, Mobic, Diclofenac. 8. Follow up in office at 2 weeks postop with Quincy Simmons PA-C / Yvon Martinez PA-C 9. Follow up with your primary care doctor 7-10 days after discharge. 10. Contact [facility] with any questions, . Keep incision clean, dry, intact. While showering, cover fusion tape with Saran wrap. Keep fusion tape on until follow-up appointment in office in 2 weeks Discharge Disposition: HOME WITH HOME HEALTH SERVICES
--- NOTE | 2023-12-27 08:46 | P.PN ---
Subjective Progress Note Date: 12/27/23 The patient is in the hospital for knee surgery. He has postoperative urinary retention. He has been started on Flomax and the catheters removed this morning. Objective - Vital Signs Vital signs: Vital Signs Temp 98.9 F 12/27/23 07:35 Pulse 77 12/27/23 07:35 Resp 18 12/27/23 07:35 BP 127/77 12/27/23 07:35 Pulse Ox 96 12/27/23 08:23 FiO2 Intake & Output 12/26/23 12/27/23 12/27/23 18:59 06:59 18:59 Output Total 1300 3000 Balance -1300 -3000 Output: Urine 1300 3000 Uretheral (Baig) 2000 Other: Voiding Method Indwelling Catheter Indwelling Catheter - Labs CBC & Chem 7: 12/27/23 05:28 Labs: Abnormal Lab Results - Last 24 Hours (Table) 12/27/23 Range/Units 05:28 RBC 2.56 L (4.40-5.60) X 10*6/uL Hgb 8.6 L (13.0-17.0) g/dL Hct 25.9 L (39.6-50.0) % MCV 101.2 H (80.0-97.0) FL MCH 33.6 H (27.0-32.0) pg Lymphocytes # 0.89 L (0.90-5.00) X 10*3/uL Eosinophils # 0.03 L (0.04-0.35) X 10*3/uL Assessment and Plan Assessment: Impression: Postoperative urine retention. Recommendations: The catheter has been removed for a voiding trial. If he voids adequately then he can be discharged home from a urologic standpoint. Since he has had no significant urinary issues prior to the hospitalization he can be followed by his primary care. If he is unable to urinate obviously we'll see him in the office postoperatively.
== END 2023-12-27 14:10 | disposition home health service (06) ==
LOC: OR 05:52 → 4SSUR 09:24 → OR 12-27 14:10
PROVIDERS: ATTEND Orthopaedic Surgery
DX: M17.12 Unilateral primary osteoarthritis, left knee (principal); G25.81 Restless legs syndrome; G89.18 Other acute postprocedural pain; I10 Essential (primary) hypertension; I48.0 Paroxysmal atrial fibrillation; N40.1 Benign prostatic hyperplasia with lower urinary tract symptoms; G47.33 Obstructive sleep apnea (adult) (pediatric); Z79.01 Long term (current) use of anticoagulants; Z79.899 Other long term (current) drug therapy; Z88.0 Allergy status to penicillin; Z90.49 Acquired absence of other specified parts of digestive tract; Z98.890 Other specified postprocedural states; Z80.1 Family history of malignant neoplasm of trachea, bronchus and lung
CPT/HCPCS: 94760 ×2; 97530; 97161; 64999; 64448; 85025 ×2; 73560; 27447; C1713 ×2; C1776; C1751; J2250; J0330; J1100; J2710; J0690 ×3; J2405; J2001; J3010; J1170 ×4; J2795; J2704; J1596

== ENCOUNTER → 2024-05-06 | Outpatient (CLI) | payer MEDICARE, BC ==
--- NOTE | 2024-05-06 08:40 | US ---
EXAMINATION TYPE: US mass soft tissue chest/back DATE OF EXAM: 05/06/2024 COMPARISON: NONE CLINICAL INDICATION: Male, 83 years old with history of R22.2 LOCALIZED SWELLING, MASS AND LUMP, TRUN K; Palpable upper left chest. Patient states its has been getting bigger. TECHNIQUE: Grayscale images taken of patients area of concern FINDINGS: Area of concern scanned. Multiple ribs are seen in the area of palpable abnormality. No so ft tissue masses or lesions seen. No lymphadenopathy identified. IMPRESSION: Palpable area of concern is thought to represent patient's rib. Consider CT imaging for f urther evaluation the area with palpable marker placement. [facility], , 05/06/2024 8:38 AM
== END | disposition home or self-care (01) ==
LOC: RADUSWWP 07:46
PROVIDERS: ATTEND Family Medicine
DX: R22.2 Localized swelling, mass and lump, trunk (principal)

== ENCOUNTER → 2024-06-05 | Outpatient (CLI) | payer MEDICARE, BC ==
--- NOTE | 2024-06-05 11:34 | XR ---
EXAMINATION TYPE: XR lumbar spine 3V DATE OF EXAM: 06/05/2024 10:38 AM COMPARISON: None CLINICAL INDICATION: Male, 83 years old with history of M54.50 LUMBAR PAIN/LOW BACK, , FINDINGS: 5 lumbar type vertebral bodies. 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 Degenerative trace grade 1 anterolisthesis L 3-L4 and L4-L5. Hypertrophic facet arthropathy is present throughout. Vertebral body heights are pres erved. 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 Hypertrophic facet arthropathy throughout. Degenerative trace grade 1 anterolisthesis L3-L4 and L4-L5. [facility], , 06/05/2024 11:31 AM
== END | disposition home or self-care (01) ==
LOC: RADXRMAIN 09:30
PROVIDERS: ATTEND Family Medicine
DX: M51.369 Other intervertebral disc degeneration, lumbar region without mention of lumbar back pain or lower extremity pain (principal); M47.816 Spondylosis without myelopathy or radiculopathy, lumbar region; M43.16 Spondylolisthesis, lumbar region
CPT/HCPCS: 72100

== ENCOUNTER → 2024-11-18 | Outpatient (CLI) | payer MEDICARE, BC ==
--- NOTE | 2024-11-18 13:02 | US ---
EXAMINATION TYPE: US venous doppler duplex LE RT DATE OF EXAM: 11/18/2024 12:51 PM COMPARISON: US CLINICAL INDICATION: Male, 83 years old with history of RLE M79.661 PAIN R22.41 SWELLING; Right leg s welling, Pain TECHNIQUE: The lower extremity deep venous system is examined utilizing real time linear array sonog rach with graded compression, color doppler sonography, and spectral doppler. SIDE PERFORMED: Right FINDINGS: VESSELS IMAGED: Common Femoral Vein Deep Femoral Vein Greater Saphenous Vein * Femoral Vein Popliteal Vein Small Saphenous Vein * Proximal Calf Veins (* superficial vessels) Right Leg: Negative for DVT, Color Doppler imaging shows patency of the vessels. Spectral waveforms are within normal limits. IMPRESSION: 1. Right lower extremity ultrasound negative for deep venous thrombosis. [facility], , 11/18/2024 1:00 PM
== END | disposition home or self-care (01) ==
LOC: RADUSWWP 12:33
PROVIDERS: ATTEND Orthopaedic Surgery
DX: M79.661 Pain in right lower leg (principal)